=== PATIENT | male | born 1990 | race Caucasian/White ===

== ENCOUNTER 2016-07-31 19:30 | Emergency (ER) | payer MEDICARE, OTHER ==
[~2016-07-31] VITALS: Ht 185.4 cm; Wt 75.0 kg
[~2016-07-31 19:30] MED LIST: BENZ1TAB PO; DEPA500T3 PO; INVA1INJ IM; PALI117P IM; PALI234P IM; RISP1 PO
[2016-07-31 19:34] VITALS: BP 132/77; PULSE 119; RESP 16; TEMP 97.6; O2SAT 98
--- NOTE | 2016-07-31 20:08 | PD ---
HPI Chief Complaint: Psychiatric Symptoms Time Seen by Provider: 20:07 Travel History International Travel<30 days: No Contact w/Intl Traveler<30days: No Traveled to known affect area: No History of Present Illness HPI Patient comes in with mother who is complaining of patient acting slower than normal over the past week. Mother states that he has a delayed reaction has been more delayed over the past week since they moved to a new house and patient 's father came home yesterday after having knee surgery. Mother reports patient has difficulty adjusting to change. Mother reports patient is taking all of his medication as she is only gives it to him. Denies any fevers, nausea , vomiting, abdominal pain, chest pain, shortness breath, loss change in bowel or bladder. Mother reports patient was complaining of a headache today. Patient is slow to answer questions but denies any pain anywhere or other concerns. PFSH Past Medical History Asthma: Yes ( A CHILD) Autoimmune Disease: No Anxiety: Yes Cardiovascular Problems: Yes (HEART MURMER A CHILD) Diminished Hearing: No Genitourinary: No Musculoskeletal: No Neurologic: Yes Psychiatric: Yes Respiratory: No Immunizations Current: Yes Schizophrenia: Yes Tetanus Vaccination: > 5 Years Past Surgical History Surgical History: No Previous Surgery Other Surgery: Yes (CANCER REMOVED ON BACK IN 2002) Social History Alcohol Use: No Tobacco Use: No Substance Use: No Allergies-Medications (Allergen,Severity, Reaction): Coded Allergies: No Known Allergies (Verified , 07/31/16) Uncoded Allergies: CATS,& CAT DANDER (Allergy, Mild, 05/22/06) Reported Meds & Prescriptions Reported Meds & Active Scripts Active Depakote ER (Divalproex Sodium) 500 Mg Shashi 500 Mg PO BID Risperdal (Risperidone) 1 Mg Tab 1 Mg PO BID Invega Sustenna Inj (Paliperidone Palmitate) 234 Mg/1.5 Ml Inj 234 Mg IM Q28D Benztropine (Benztropine Mesylate) 1 Mg Tab 1 Mg PO DAILY Review of Systems Except as stated in HPI: all other systems reviewed are Neg Physical Exam Narrative GENERAL: Well-developed, well nourished, in no acute distress, and non-ill appearing. SKIN: Focused skin assessment warm and dry. HEAD: Atraumatic. Normocephalic. EYES: Pupils equal and round. EOMI. No scleral icterus. No injection or drainage. ENT: No nasal bleeding or discharge. Mucous membranes pink and moist. NECK: Trachea midline. Supple. No nuclear rigidity. CARDIOVASCULAR: Regular rate and rhythm. No murmur appreciated. RESPIRATORY: No accessory muscle use. No respiratory distress. Clear to auscultation. Breath sounds equal bilaterally. GASTROINTESTINAL: Abdomen soft, non-tender, nondistended. Hepatic and splenic margins not palpable. No pulsatile mass. MUSCULOSKELETAL: No obvious deformities. No clubbing. No cyanosis. No edema. Full range of motion. NEUROLOGICAL: Awake and alert. No obvious cranial nerve deficits. Motor grossly within normal limits. Normal speech for patient per mom. Data Data Last Documented VS Vital Signs Date Time Temp Pulse Resp B/P Pulse Ox O2 Delivery O2 Flow Rate FiO2 07/31/16 22:52 96 20 105/66 98 Room Air 07/31/16 19:34 97.6 Orders Complete Blood Count With Diff (07/31/16 19:55) Comprehensive Metabolic Panel (07/31/16 19:55) Psych Screen (07/31/16 19:55) Drug Screen, Random Urine (07/31/16 19:55) Alcohol (Ethanol) (07/31/16 19:55) Salicylates (Aspirin) (07/31/16 19:55) Tylenol (Acetaminophen) (07/31/16 19:55) Valproic Acid (Depakene) (07/31/16 20:05) Ct Brain W/O Iv Contrast(Rout) (07/31/16 ) Divalproex Er (Depakote Er) (07/31/16 21:15) Lorazepam Inj (Ativan Inj) (07/31/16 21:15) Labs Laboratory Tests Test 07/31/16 07/31/16 07/31/16 20:00 20:30 20:50 White Blood Count 6.7 TH/MM3 Red Blood Count 4.50 MIL/MM3 Hemoglobin 13.6 GM/DL Hematocrit 39.4 % Mean Corpuscular Volume 87.6 FL Mean Corpuscular Hemoglobin 30.3 PG Mean Corpuscular Hemoglobin 34.6 % Concent Red Cell Distribution Width 12.6 % Platelet Count 263 TH/MM3 Mean Platelet Volume 8.0 FL Neutrophils (%) (Auto) 70.5 % Lymphocytes (%) (Auto) 21.7 % Monocytes (%) (Auto) 6.7 % Eosinophils (%) (Auto) 0.3 % Basophils (%) (Auto) 0.8 % Neutrophils # (Auto) 4.7 TH/MM3 Lymphocytes # (Auto) 1.5 TH/MM3 Monocytes # (Auto) 0.4 TH/MM3 Eosinophils # (Auto) 0.0 TH/MM3 Basophils # (Auto) 0.1 TH/MM3 CBC Comment DIFF FINAL Differential Comment Sodium Level 138 MEQ/L Potassium Level 3.9 MEQ/L Chloride Level 103 MEQ/L Carbon Dioxide Level 25.2 MEQ/L Anion Gap 10 MEQ/L Blood Urea Nitrogen 14 MG/DL Creatinine 0.73 MG/DL Estimat Glomerular Filtration 129 ML/MIN Rate Random Glucose 103 MG/DL Calcium Level 9.4 MG/DL Total Bilirubin 0.3 MG/DL Aspartate Amino Transf 12 U/L (AST/SGOT) Alanine Aminotransferase 16 U/L (ALT/SGPT) Alkaline Phosphatase 65 U/L Total Protein 7.5 GM/DL Albumin 4.0 GM/DL Acetaminophen Level LESS THAN 2.0 MCG/ML Valproic Acid (Depakene) Level 40 MCG/ML Ethyl Alcohol Level LESS THAN 3 MG/DL Salicylates Level 1.8 MG/DL Urine Opiates Screen NEG Urine Barbiturates Screen NEG Urine Amphetamines Screen NEG Urine Benzodiazepines Screen NEG Urine Cocaine Screen NEG Urine Cannabinoids Screen NEG MDM Medical Decision Making Medical Screen Exam Complete: Yes Emergency Medical Condition: Yes Interpretation(s) CT of the head read by the radiologist as negative. Differential Diagnosis Electrolyte abnormality, adjustment disorder, acute psychosis, mass, or other Narrative Course Patient was seen and examined. Labs were obtained and reviewed. Patient is given a dose of Depakote and Ativan. Based on history provided by mom as the patient is suffering from adjustment disorder secondary to the recent move and father's knee surgery. Patient medically cleared for further treatment and evaluation by psych. Final disposition per psych. [id number] mother's questioning patient be released home now states that he is acting more his normal self after receiving medication here in the emergency department and she was comfortable taking him home and agrees to bring him back for any acute changes. Mother states she will follow up with his psychiatrist at [facility]. I spoke with the psych screener states patient was not at risk for suicidal homicidal ideations, but feels patient may benefit from having his medication adjusted. Discussed with Dr. Schuler who saw and evaluated the patient and is in agreement with allowing the patient to be discharged home in his mother's custody. Diagnosis Primary Impression: Adjustment disorder Qualified Code: F43.20 - Adjustment disorder, unspecified type Patient Instructions: General Instructions Additional Instructions: Follow-up with your primary care physician and psychiatrist this week for reevaluation. Return to the emergency department if symptoms get worse. Disposition: 01 DISCHARGE HOME Condition: Stable Maxx Sevilla Jul 31, 2016 20:08
[2016-07-31 20:13] LABS: AUTOMATED NEUTROPHIL # 4.7 TH/MM3 (1.8-7.7); BASOPHIL # 0.1 TH/MM3 (0-0.2); BASOPHIL % 0.8 % (0.0-2.0); EOSINOPHIL % 0.3 % (0.0-4.0); HEMATOCRIT 39.4 % (39.0-51.0); HEMO FLAGS DIFF FINAL; LYMPH % 21.7 % (9.0-44.0); LYMPHOCYTE # 1.5 TH/MM3 (1.0-4.8); MEAN CELL VOLUME 87.6 FL (80.0-100.0); MEAN CORPUSCULAR HEMOGLOBIN 30.3 PG (27.0-34.0); MEAN CORPUSCULAR HGB CONC 34.6 % (32.0-36.0); MONO % 6.7 % (0.0-8.0); NEUT % 70.5 % (16.0-70.0); PLATELET COUNT 263 TH/MM3 (150-450); RED CELL DISTRIBUTION WIDTH 12.6 % (11.6-17.2); WHITE BLOOD COUNT 6.7 TH/MM3 (4.0-11.0)
[2016-07-31 20:33] LABS: ANION GAP 10 MEQ/L (5-15); AST (GOT) 12 U/L (15-37); BICARBONATE 25.2 MEQ/L (21.0-32.0); BLOOD UREA NITROGEN 14 MG/DL (7-18); CHLORIDE 103 MEQ/L (98-107); GLOMERULAR FILTRATION RATE 129 ML/MIN (>89); POTASSIUM 3.9 MEQ/L (3.5-5.1); SODIUM (NA) 138 MEQ/L (136-145)
[2016-07-31 20:38] LABS: ACETAMINOPHEN LESS THAN 2.0 MCG/ML (10.0-30.0); ALKALINE PHOSPHATASE 65 U/L (45-117); ALT (GPT) 16 U/L (12-78); TOTAL BILIRUBIN ADULT 0.3 MG/DL (0.2-1.0)
--- NOTE | 2016-07-31 21:00 | RADRPT ---
EXAM DATE/TIME: 07/31/2016 20:15 [facility] COMPARISON: No previous studies available for comparison. INDICATIONS : Altered mental status today. RADIATION DOSE: 56.35 CTDIvol (mGy) MEDICAL HISTORY : Cardiovascular disease. SURGICAL HISTORY : None. ENCOUNTER: Initial ACUITY: 1 day PAIN SCALE: 0/10 LOCATION: Bilateral head TECHNIQUE: Multiple contiguous axial images were obtained of the head. Using automated exposure control and adj ustment of the mA and/or kV according to patient size, radiation dose was kept as low as reasonably a chievable to obtain optimal diagnostic quality images. FINDINGS: CEREBRUM: The ventricles are normal for age. No evidence of midline shift, mass lesion, hemorrhage or acute in farction. No extra-axial fluid collections are seen. POSTERIOR FOSSA: The cerebellum and brainstem are intact. The 4th ventricle is midline. The cerebellopontine angle i s unremarkable. EXTRACRANIAL: The visualized portion of the orbits is intact. SKULL: The calvaria is intact. No evidence of skull fracture. CONCLUSION: Negative noncontrast CT brain. Donaldo Bass MD on July 31, 2016 at 20:57 Board Certified Radiologist. This report was verified electronically.
[2016-07-31] MEDS ORDERED: DIVALPROEX SODIUM E.R. 500 MG TAB PO ONE (21:15)
[2016-07-31] MEDS ORDERED: LORazepam 2 MG/ML VIAL IV PUSH ONE (21:15)
[2016-07-31 21:39] LABS: AMPHETAMINE, URINE NEG (NEG); BARBITURATES, URINE NEG (NEG); COCAINE, URINE NEG (NEG)
[2016-07-31 21:53] VITALS: BP 109/71; PULSE 101; RESP 20; O2SAT 96
[2016-07-31 22:52] VITALS: BP 105/66; PULSE 96; RESP 20; O2SAT 98
--- NOTE | 2016-07-31 23:13 | PD ---
Data Data Last Documented VS Vital Signs Date Time Temp Pulse Resp B/P Pulse Ox O2 Delivery O2 Flow Rate FiO2 07/31/16 23:50 76 20 102/55 98 07/31/16 22:52 Room Air 07/31/16 19:34 97.6 Orders Complete Blood Count With Diff (07/31/16 19:55) Comprehensive Metabolic Panel (07/31/16 19:55) Psych Screen (07/31/16 19:55) Drug Screen, Random Urine (07/31/16 19:55) Alcohol (Ethanol) (07/31/16 19:55) Salicylates (Aspirin) (07/31/16 19:55) Tylenol (Acetaminophen) (07/31/16 19:55) Valproic Acid (Depakene) (07/31/16 20:05) Ct Brain W/O Iv Contrast(Rout) (07/31/16 ) Divalproex Er (Depakote Er) (07/31/16 21:15) Lorazepam Inj (Ativan Inj) (07/31/16 21:15) Labs Laboratory Tests Test 07/31/16 07/31/16 07/31/16 20:00 20:30 20:50 White Blood Count 6.7 TH/MM3 Red Blood Count 4.50 MIL/MM3 Hemoglobin 13.6 GM/DL Hematocrit 39.4 % Mean Corpuscular Volume 87.6 FL Mean Corpuscular Hemoglobin 30.3 PG Mean Corpuscular Hemoglobin 34.6 % Concent Red Cell Distribution Width 12.6 % Platelet Count 263 TH/MM3 Mean Platelet Volume 8.0 FL Neutrophils (%) (Auto) 70.5 % Lymphocytes (%) (Auto) 21.7 % Monocytes (%) (Auto) 6.7 % Eosinophils (%) (Auto) 0.3 % Basophils (%) (Auto) 0.8 % Neutrophils # (Auto) 4.7 TH/MM3 Lymphocytes # (Auto) 1.5 TH/MM3 Monocytes # (Auto) 0.4 TH/MM3 Eosinophils # (Auto) 0.0 TH/MM3 Basophils # (Auto) 0.1 TH/MM3 CBC Comment DIFF FINAL Differential Comment Sodium Level 138 MEQ/L Potassium Level 3.9 MEQ/L Chloride Level 103 MEQ/L Carbon Dioxide Level 25.2 MEQ/L Anion Gap 10 MEQ/L Blood Urea Nitrogen 14 MG/DL Creatinine 0.73 MG/DL Estimat Glomerular Filtration 129 ML/MIN Rate Random Glucose 103 MG/DL Calcium Level 9.4 MG/DL Total Bilirubin 0.3 MG/DL Aspartate Amino Transf 12 U/L (AST/SGOT) Alanine Aminotransferase 16 U/L (ALT/SGPT) Alkaline Phosphatase 65 U/L Total Protein 7.5 GM/DL Albumin 4.0 GM/DL Acetaminophen Level LESS THAN 2.0 MCG/ML Valproic Acid (Depakene) Level 40 MCG/ML Ethyl Alcohol Level LESS THAN 3 MG/DL Salicylates Level 1.8 MG/DL Urine Opiates Screen NEG Urine Barbiturates Screen NEG Urine Amphetamines Screen NEG Urine Benzodiazepines Screen NEG Urine Cocaine Screen NEG Urine Cannabinoids Screen NEG MDM Supervised Visit with RAUL: Yes Narrative Course I, Dr. Schuler, have reviewed the advance practice practitioner's documentation and am in agreement, met with the patient face to face, made the diagnosis, and the medical decision making was done by me. *My assessment and Findings: Patient appears to be having a breakthrough of his underlying psychiatric symptoms. According the mother no aggression towards her or himself. Patient denies any suicidal homicidal ideation. Easily redirectable, and cooperative. He is given meds in the emergency department is much calmer now and mom states that she would like take him home and continue his regular medication regimen at home. Patient is certainly not a threat to himself nor others, I do not consider him greatly disabled his lungs mother wants to take care of him. Therefore I am going to on her mother's request to take the patient home. I discussed with her at length returned ED criteria and if he does ever become violent in the future she is entitled to call 911. She verbalized understanding was grateful and they were discharged Diagnosis Primary Impression: Adjustment disorder Qualified Code: F43.20 - Adjustment disorder, unspecified type Patient Instructions: General Instructions Additional Instruction: Follow-up with your primary care physician and psychiatrist this week for reevaluation. Return to the emergency department if symptoms get worse. Disposition: 01 DISCHARGE HOME Condition: Stable Guanako Schuler MD Jul 31, 2016 23:13
[2016-07-31 23:50] VITALS: BP 102/55
== END 2016-08-01 00:13 | disposition home or self-care (01) ==
LOC: NEPC 19:30
DX: F43.20 Adjustment disorder, unspecified (principal)
CPT/HCPCS: 70450; 80053; 80164; 80307; 85025; 96374; 99285; J2060

== ENCOUNTER 2016-08-31 10:34 | Inpatient (IN) | payer OTHER, MEDICARE ==
[~2016-08-31] VITALS: Ht 185.4 cm; Wt 62.0 kg
[~2016-08-31 10:34] MED LIST changes: -INVA1INJ IM; -PALI117P IM
[2016-08-31 10:37] VITALS: BP 124/78; PULSE 102; RESP 24; TEMP 97.3; O2SAT 100
--- NOTE | 2016-08-31 11:33 | PD ---
HPI Chief Complaint: Medical Clearance Time Seen by Provider: 11:33 Travel History International Travel<30 days: No Contact w/Intl Traveler<30days: No Traveled to known affect area: No History of Present Illness HPI 26-year-old male with history of schizophrenia, presents to the emergency department accompanied by his mother for psychiatric evaluation. Patient has been experiencing both auditory and visual hallucinations. He has again responding to them. His mother states that he has become more distant, slow to respond, and his stuttering has worsened. She states he does not do any drugs and he lives at home with her. He has had outbursts. She states his responses to these voices have been "evil." She is concerned that things are escalating and is scared for what might happen. She states that he was take his medication and he gets his shots injections as he is supposed to. She said he has been doing well until recently and she is concerned his medication is no longer working. Patient is a poor historian. He is very delayed and responses to me. When asked if he wanted to hurt himself patient gazes up to the right and becomes tearful. He does not answer my question. PFSH Past Medical History Asthma: Yes ( A CHILD) Autoimmune Disease: No Anxiety: Yes Cardiovascular Problems: Yes (HEART MURMER A CHILD) Diminished Hearing: No Gastrointestinal Disorders: No Genitourinary: No Musculoskeletal: No Neurologic: Yes Psychiatric: Yes Respiratory: No Immunizations Current: Yes Schizophrenia: Yes Past Surgical History Other Surgery: Yes (CANCER REMOVED ON BACK IN 2002) Social History Alcohol Use: No Tobacco Use: No Substance Use: No Allergies-Medications (Allergen,Severity, Reaction): Coded Allergies: No Known Allergies (Verified , 08/31/16) Uncoded Allergies: CATS,& CAT DANDER (Allergy, Mild, 05/22/06) Reported Meds & Prescriptions Reported Meds & Active Scripts Active Depakote ER (Divalproex Sodium) 500 Mg Shashi 500 Mg PO BID Risperdal (Risperidone) 1 Mg Tab 1 Mg PO BID Invega Sustenna Inj (Paliperidone Palmitate) 234 Mg/1.5 Ml Inj 234 Mg IM Q28D Benztropine (Benztropine Mesylate) 1 Mg Tab 1 Mg PO DAILY Review of Systems ROS Limitations: Psychotic, Poor Historian Except as stated in HPI: all other systems reviewed are Neg Physical Exam Exam Limitations: Psychotic Narrative GENERAL: Thin male patient, sitting up in bed, responding to internal stimuli. Started speech and slow to respond SKIN: Focused skin assessment warm/dry. HEAD: Atraumatic. Normocephalic. EYES: Pupils 5 mm, equal and round. No scleral icterus. No injection or drainage. ENT: No nasal bleeding or discharge. Mucous membranes pink and moist. NECK: Trachea midline. No JVD. CARDIOVASCULAR: Tachycardic rate and rhythm. No murmur appreciated. RESPIRATORY: No accessory muscle use. Clear to auscultation. Breath sounds equal bilaterally. GASTROINTESTINAL: Abdomen soft, non-tender, nondistended. Hepatic and splenic margins not palpable. MUSCULOSKELETAL: No obvious deformities. No clubbing. No cyanosis. No edema. NEUROLOGICAL: Awake and alert. No obvious cranial nerve deficits. Motor grossly within normal limits. Stuttered speech Data Data Last Documented VS Vital Signs Date Time Temp Pulse Resp B/P Pulse Ox O2 Delivery O2 Flow Rate FiO2 08/31/16 13:19 95 18 125/74 98 08/31/16 10:37 97.3 Room Air Orders Complete Blood Count With Diff (08/31/16 11:31) Comprehensive Metabolic Panel (08/31/16 11:31) Thyroid Stimulating Hormone (08/31/16 11:31) Urinalysis - C+S If Indicated (08/31/16 11:31) Electrocardiogram (08/31/16 11:31) Iv Access Insert/Monitor (08/31/16 11:31) Psych Screen (08/31/16 11:31) Drug Screen, Random Urine (08/31/16 11:31) Alcohol (Ethanol) (08/31/16 11:31) Olanzapine Odt (Zyprexa Zydis Odt) (08/31/16 11:45) Ct Brain W/O Iv Contrast(Rout) (08/31/16 ) Admit Order (Ed Use Only) (08/31/16 16:56) Labs Laboratory Tests Test 08/31/16 08/31/16 11:55 12:05 White Blood Count 5.3 TH/MM3 Red Blood Count 4.48 MIL/MM3 Hemoglobin 13.5 GM/DL Hematocrit 39.4 % Mean Corpuscular Volume 87.9 FL Mean Corpuscular Hemoglobin 30.1 PG Mean Corpuscular Hemoglobin 34.2 % Concent Red Cell Distribution Width 13.3 % Platelet Count 242 TH/MM3 Mean Platelet Volume 7.8 FL Neutrophils (%) (Auto) 64.8 % Lymphocytes (%) (Auto) 23.6 % Monocytes (%) (Auto) 10.8 % Eosinophils (%) (Auto) 0.3 % Basophils (%) (Auto) 0.5 % Neutrophils # (Auto) 3.4 TH/MM3 Lymphocytes # (Auto) 1.2 TH/MM3 Monocytes # (Auto) 0.6 TH/MM3 Eosinophils # (Auto) 0.0 TH/MM3 Basophils # (Auto) 0.0 TH/MM3 CBC Comment DIFF FINAL Differential Comment Sodium Level 138 MEQ/L Potassium Level 3.8 MEQ/L Chloride Level 104 MEQ/L Carbon Dioxide Level 24.2 MEQ/L Anion Gap 10 MEQ/L Blood Urea Nitrogen 10 MG/DL Creatinine 0.71 MG/DL Estimat Glomerular Filtration 133 ML/MIN Rate Random Glucose 80 MG/DL Calcium Level 9.5 MG/DL Total Bilirubin 0.5 MG/DL Aspartate Amino Transf 13 U/L (AST/SGOT) Alanine Aminotransferase 18 U/L (ALT/SGPT) Alkaline Phosphatase 60 U/L Total Protein 7.5 GM/DL Albumin 3.8 GM/DL Thyroid Stimulating Hormone 1.690 uIU/ML 3rd Gen Ethyl Alcohol Level LESS THAN 3 MG/DL Urine Color YELLOW Urine Turbidity CLEAR Urine pH 7.5 Urine Specific [place] 1.016 Urine Protein NEG mg/dL Urine Glucose (UA) NEG mg/dL Urine Ketones 10 mg/dL Urine Occult Blood NEG Urine Nitrite NEG Urine Bilirubin NEG Urine Urobilinogen LESS THAN 2.0 MG/DL Urine Leukocyte Esterase NEG Urine RBC 4 /hpf Urine WBC 1 /hpf Urine Mucus FEW /lpf Urine Sperm RARE Microscopic Urinalysis Comment CULT NOT INDICATED MDM Medical Decision Making Medical Screen Exam Complete: Yes Emergency Medical Condition: Yes Medical Record Reviewed: Yes Differential Diagnosis Mood disorder versus personality disorder versus adjustment reaction disorder versus acute psychosis Narrative Course 26-year-old male presents to the emergency department for psychiatric evaluation. Patient is a poor historian. He is delayed to respond was significantly stuttered speech. He is responding to internal stimuli. Discussed the patient with lissett DowdP. Lab work is ordered for medical clearance. Patient is given by mouth Zyprexa. Laboratory Tests Test 08/31/16 08/31/16 11:55 12:05 White Blood Count 5.3 TH/MM3 Red Blood Count 4.48 MIL/MM3 Hemoglobin 13.5 GM/DL Hematocrit 39.4 % Mean Corpuscular Volume 87.9 FL Mean Corpuscular Hemoglobin 30.1 PG Mean Corpuscular Hemoglobin 34.2 % Concent Red Cell Distribution Width 13.3 % Platelet Count 242 TH/MM3 Mean Platelet Volume 7.8 FL Neutrophils (%) (Auto) 64.8 % Lymphocytes (%) (Auto) 23.6 % Monocytes (%) (Auto) 10.8 % Eosinophils (%) (Auto) 0.3 % Basophils (%) (Auto) 0.5 % Neutrophils # (Auto) 3.4 TH/MM3 Lymphocytes # (Auto) 1.2 TH/MM3 Monocytes # (Auto) 0.6 TH/MM3 Eosinophils # (Auto) 0.0 TH/MM3 Basophils # (Auto) 0.0 TH/MM3 CBC Comment DIFF FINAL Differential Comment Sodium Level 138 MEQ/L Potassium Level 3.8 MEQ/L Chloride Level 104 MEQ/L Carbon Dioxide Level 24.2 MEQ/L Anion Gap 10 MEQ/L Blood Urea Nitrogen 10 MG/DL Creatinine 0.71 MG/DL Estimat Glomerular Filtration 133 ML/MIN Rate Random Glucose 80 MG/DL Calcium Level 9.5 MG/DL Total Bilirubin 0.5 MG/DL Aspartate Amino Transf 13 U/L (AST/SGOT) Alanine Aminotransferase 18 U/L (ALT/SGPT) Alkaline Phosphatase 60 U/L Total Protein 7.5 GM/DL Albumin 3.8 GM/DL Thyroid Stimulating Hormone 1.690 uIU/ML 3rd Gen Ethyl Alcohol Level LESS THAN 3 MG/DL Urine Color YELLOW Urine Turbidity CLEAR Urine pH 7.5 Urine Specific [place] 1.016 Urine Protein NEG mg/dL Urine Glucose (UA) NEG mg/dL Urine Ketones 10 mg/dL Urine Occult Blood NEG Urine Nitrite NEG Urine Bilirubin NEG Urine Urobilinogen LESS THAN 2.0 MG/DL Urine Leukocyte Esterase NEG Urine RBC 4 /hpf Urine WBC 1 /hpf Urine Mucus FEW /lpf Urine Sperm RARE Microscopic Urinalysis Comment CULT NOT INDICATED Last Impressions Head CT 08/31/16 0000 Signed Impressions: Service Date/Time: Wednesday, August 31, 2016 13:13 - CONCLUSION: Unremarkable study. John Fuller MD Patient will be medically cleared to undergo psychiatric screening for further evaluation and disposition. I have contacted Benita has come to assess the patient. Patient will be admitted inpatient psych. Diagnosis Primary Impression: Psychosis Qualified Code: F20.9 - Schizophrenia, unspecified type Condition: Stable Rashmi Licona Aug 31, 2016 11:33
[2016-08-31] MEDS ORDERED: OLANZapine ODT 10 MG TAB PO ONE (11:45)
[2016-08-31 12:33] LABS: AUTOMATED NEUTROPHIL # 3.4 TH/MM3 (1.8-7.7); BASOPHIL % 0.5 % (0.0-2.0); EOSINOPHIL % 0.3 % (0.0-4.0); HEMATOCRIT 39.4 % (39.0-51.0); HEMO FLAGS DIFF FINAL; LYMPH % 23.6 % (9.0-44.0); LYMPHOCYTE # 1.2 TH/MM3 (1.0-4.8); MEAN CELL VOLUME 87.9 FL (80.0-100.0); MEAN CORPUSCULAR HEMOGLOBIN 30.1 PG (27.0-34.0); MEAN CORPUSCULAR HGB CONC 34.2 % (32.0-36.0); MONO % 10.8 % (0.0-8.0); NEUT % 64.8 % (16.0-70.0); PLATELET COUNT 242 TH/MM3 (150-450); RED BLOOD COUNT 4.48 MIL/MM3 (4.50-5.90); RED CELL DISTRIBUTION WIDTH 13.3 % (11.6-17.2); WHITE BLOOD COUNT 5.3 TH/MM3 (4.0-11.0)
[2016-08-31 12:39] LABS: BLOOD, URINE NEG (NEG); COMMENT (UR) CULT NOT INDICATED; CULTURE IF INDICATED CULT NOT INDICATED; GLUCOSE,URINE NEG (NEG); KETONE, URINE 10 mg/dL (NEG); MUCUS URINE FEW /lpf (OCC); NITRITE,URINE NEG (NEG); PH, URINE 7.5 (5.0-8.5); URINE COLOR YELLOW (YELLW/STRAW)
[2016-08-31 12:57] LABS: ALT (GPT) 18 U/L (12-78); ANION GAP 10 MEQ/L (5-15); AST (GOT) 13 U/L (15-37); BICARBONATE 24.2 MEQ/L (21.0-32.0); BLOOD UREA NITROGEN 10 MG/DL (7-18); CHLORIDE 104 MEQ/L (98-107); GLOMERULAR FILTRATION RATE 133 ML/MIN (>89); POTASSIUM 3.8 MEQ/L (3.5-5.1); SODIUM (NA) 138 MEQ/L (136-145)
[2016-08-31 13:07] LABS: ALKALINE PHOSPHATASE 60 U/L (45-117); TOTAL BILIRUBIN ADULT 0.5 MG/DL (0.2-1.0)
[2016-08-31 13:19] VITALS: BP 125/74; PULSE 95; RESP 18; O2SAT 98
--- NOTE | 2016-08-31 13:45 | RADRPT ---
EXAM DATE/TIME: 08/31/2016 13:13 [facility] COMPARISON: CT BRAIN W/O CONTRAST, July 31, 2016, 20:15. INDICATIONS : Altered mental status, focal seizures RADIATION DOSE: 35.92 CTDIvol (mGy) MEDICAL HISTORY : Cardiovascular disease. Schizophrenia SURGICAL HISTORY : None. ENCOUNTER: Initial ACUITY: 1 day PAIN SCALE: 0/10 LOCATION: cranial TECHNIQUE: Multiple contiguous axial images were obtained of the head. Using automated exposure control and adj ustment of the mA and/or kV according to patient size, radiation dose was kept as low as reasonably a chievable to obtain optimal diagnostic quality images. DICOM format image data is available electro nically for review and comparison. FINDINGS: There is no evidence for intracranial hemorrhage, mass effect, mass lesions, edema, or extra-axial fl uid collections. The visualized bony structures appear intact. The ventricles are normal size for t he patient's age. There are no signs of acute infarction for technique. CONCLUSION: Unremarkable study. John Fuller MD on August 31, 2016 at 13:43 Board Certified Radiologist. This report was verified electronically.
--- NOTE | 2016-08-31 16:11 | EKG ---
Date Performed: 08/31/2016 Time Performed: 12:52:08 PTAGE: 26 years EKG: Sinus rhythm POSSIBLE LEFT ATRIAL ENLARGEMENT POSSIBLE RIGHT VENTRICULAR CONDUCTION DELAY BORDERLINE ECG PREVIOUS TRACING : 08/25/2008 13.35 Compared to prior tracing no significant change DOCTOR: Donovan Rios Interpretating Date/Time 08/31/2016 16:09:52
[2016-08-31 18:06] VITALS: BP 102/64; PULSE 94; RESP 17; TEMP 98.1; O2SAT 99
[2016-08-31] MEDS: risperiDONE 1 MG TAB PO SCH (20:00)
[2016-08-31] MEDS ORDERED: hydrOXYzine HCL 50 MG TAB PO PRN (20:00)
[2016-08-31] MEDS ORDERED: MAGNESIUM HYDROXIDE SUSP 30 ML CUP PO PRN (20:00)
[2016-08-31] MEDS ORDERED: diphenhydrAMINE HCL 50 MG/ML VIAL - HS PRN IM (20:00)
[2016-08-31] MEDS ORDERED: diphenhydrAMINE HCL 50 MG CAP - HS PRN PO (20:00)
[2016-08-31] MEDS ORDERED: ALUMINUM/MAGNESIUM/SIMETH 30 ML CUP PO PRN (20:00)
[2016-08-31] MEDS ORDERED: ACETAMINOPHEN 325 MG TAB PO PRN (20:00)
[2016-08-31] MEDS: DIVALPROEX SODIUM E.R. 500 MG TAB PO SCH (21:00)
[2016-08-31 23:02] LABS: AMPHETAMINE, URINE NEG (NEG); BARBITURATES, URINE NEG (NEG); COCAINE, URINE NEG (NEG)
[2016-09-01 06:01] VITALS: BP 95/57; PULSE 107; RESP 16; TEMP 98; O2SAT 98
[2016-09-01] MEDS ORDERED: NICOTINE 21 MG/24 HR PATCH T-DERMAL SCH (09:00)
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
[2016-09-01] MEDS: BENZTROPINE MESYLATE 1 MG TAB PO SCH (10:17)
[2016-09-01] MEDS: DIVALPROEX SODIUM E.R. 500 MG TAB PO SCH ×2 (10:17→21:43)
[2016-09-01] MEDS: risperiDONE 1 MG TAB PO SCH ×2 (10:20→20:15)
[2016-09-01] MEDS ORDERED: LORazepam 1 MG TAB PO PRN (12:45)
[2016-09-01] MEDS ORDERED: BENZTROPINE MESYLATE 1 MG TAB PO PRN (12:45)
[2016-09-01] MEDS ORDERED: LORazepam 2 MG/ML VIAL IM PRN (12:45)
[2016-09-01] MEDS ORDERED: BENZTROPINE MESYLATE 2 MG/2 ML VIAL IM PRN (12:45)
[2016-09-01 14:18] LABS: ANION GAP 6 MEQ/L (5-15); BICARBONATE 29.1 MEQ/L (21.0-32.0); BLOOD UREA NITROGEN 18 MG/DL (7-18); CHLORIDE 104 MEQ/L (98-107); GLOMERULAR FILTRATION RATE 87 ML/MIN (>89); POTASSIUM 4.5 MEQ/L (3.5-5.1); SODIUM (NA) 139 MEQ/L (136-145)
[2016-09-01 14:23] LABS: HDL CHOLESTEROL 58.4 MG/DL (40.0-60.0); LDL CHOLESTEROL 89 MG/DL (0-99)
--- NOTE | 2016-09-01 16:30 | PD.CONS ---
HPI Service [facility] Hospitalists Consult Requested By Psychiatry team Reason for Consult Medical management vertigo, dizziness Primary Care Physician Jamal Feng Diagnoses: History of Present Illness Written by Pravin Canales, acting as scribe for Dr. Durbin on 09/01/16 at 15: 44. Patient is a 26-year-old male with primary medical history of schizophrenia, auditory and visual hallucinations, asthma who came in due to hospital for psychiatric evaluation brought in by mother. As per records, patient has been experiencing both auditory and visual hallucinations and responding to them. His mother states that he has become more distant, slow to respond, and his stuttering has worsened. He is now admitted to inpatient psychiatry unit for further evaluation. Consulted for medical management for vertigo. Patient seen and examined. Reports he has "spinning sensation" for close to a year now. States it happens about 2-3x per month, associated with hearing voices when this happen. Reports does not know any triggering events, it just happens. Reports last time it happened was yesterday. Denies any ear pain, eye pain. Denies visual or auditory hallucination or sz. Denies pain and discomfort. Denies SOB/ dyspnea. Denies chest pain, palpitations, headaches, dizziness. Denies fevers, chills, n/v/d. Denies dysuria. Review of Systems Except as stated in HPI: all other systems reviewed are Neg Past Family Social History Allergies: Coded Allergies: No Known Allergies (Verified , 08/31/16) Uncoded Allergies: CATS,& CAT DANDER (Allergy, Mild, 05/22/06) Past Medical History Schizophrenia with auditory and visual hallucinations Asthma Past Surgical History Cancer removal in the back in 2002 Reported Medications Reported Meds & Active Scripts Active Depakote ER (Divalproex Sodium) 500 Mg Shashi 500 Mg PO BID Risperdal (Risperidone) 1 Mg Tab 1 Mg PO BID 08, Invega Sustenna Inj (Paliperidone Palmitate) 234 Mg/1.5 Ml Inj 234 Mg IM Q28D Benztropine (Benztropine Mesylate) 1 Mg Tab 1 Mg PO DAILY Active Ordered Medications Current Medications Medications (Trade) Dose Ordered Sig/Balta Route Start Time Stop Time Status Last Admin (Atarax) 50 mg Q6H PRN PO 08/31/16 20:00 (Benadryl) 50 mg HS PRN PO 08/31/16 20:00 (Tylenol) 650 mg Q4H PRN PO 08/31/16 20:00 (Milk Of Magnesia Liq) 30 ml DAILY PRN PO 08/31/16 20:00 (Mag-Al Plus Susp Liq) 30 ml Q6H PRN PO 08/31/16 20:00 (Cogentin) 1 mg DAILY PO 09/01/16 09:00 09/01/16 10:17 (risperDAL) 2 mg DAILY@08,20 PO 08/31/16 20:00 09/01/16 10:20 (Depakote Er) 500 mg BID PO 08/31/16 21:00 09/01/16 10:17 (ZyPREXA ZYDIS ODT) 5 mg HS PO 09/01/16 21:00 (Cogentin) 1 mg Q12HR PRN PO 09/01/16 12:45 (Cogentin Inj) 1 mg Q12HR PRN IM 09/01/16 12:45 (Ativan) 1 mg Q6H PRN PO 09/01/16 12:45 (Ativan Inj) 1 mg Q6H PRN IM 09/01/16 12:45 Family History Denies any family history of seizures Social History Denies alcohol use Denies tobacco use Denies illicit drug use Physical Exam Vital Signs Vital Signs Date Time Temp Pulse Resp B/P Pulse Ox O2 Delivery O2 Flow Rate FiO2 09/01/16 06:01 98.0 107 16 95/57 98 08/31/16 18:06 98.1 94 17 102/64 99 Physical Exam GENERAL: This is a well-nourished, well-developed patient, in no apparent distress. SKIN: No rashes, ecchymoses or lesions. Warm and dry. HEAD: Atraumatic. Normocephalic. No temporal or scalp tenderness. EYES: Pupils equal round and reactive. Extraocular motions intact. No scleral icterus. No injection or drainage. No nystagmus ENT: Nose without bleeding. Throat without erythema. Uvula midline. Airway patent. NECK: Trachea midline. No JVD or lymphadenopathy. Supple, nontender, no meningeal signs. CARDIOVASCULAR: Regular rate and rhythm without murmurs, gallops, or rubs. RESPIRATORY: Clear to auscultation. Breath sounds equal bilaterally. No wheezes , rales, or rhonchi. GASTROINTESTINAL: Abdomen soft, non-tender, nondistended. BS active x4. MUSCULOSKELETAL: Extremities without clubbing, cyanosis, or edema. NEUROLOGICAL: Awake and alert. Motor and sensory grossly within normal limits. He stutters Laboratory Laboratory Tests Test 09/01/16 11:47 Sodium Level 139 Potassium Level 4.5 Chloride Level 104 Carbon Dioxide Level 29.1 Anion Gap 6 Blood Urea Nitrogen 18 Creatinine 1.03 Estimat Glomerular Filtration 87 Rate Random Glucose 89 Calcium Level 9.6 Triglycerides Level 48 Cholesterol Level 157 LDL Cholesterol 89 HDL Cholesterol 58.4 Cholesterol/HDL Ratio 2.68 Valproic Acid (Depakene) Level 90 Result Diagram: 08/31/16 1155 09/01/16 1147 Imaging Last Impressions Head CT 08/31/16 0000 Signed Impressions: Service Date/Time: Monday, August 31, 2016 13:13 - CONCLUSION: Unremarkable study. John Fuller MD Assessment and Plan Problem List: (1) Psychosis ICD Code: F29 Status: Acute Assessment and Plan Patient is a 26-year-old male with primary medical history of schizophrenia, auditory and visual hallucinations, asthma who came in due to hospital for psychiatric evaluation brought in by mother. As per records, patient has been experiencing both auditory and visual hallucinations and responding to them. His mother states that he has become more distant, slow to respond, and his stuttering has worsened. He is now admitted to inpatient psychiatry unit for further evaluation. Consulted for medical management for vertigo. Schizophrenia - Managed by psychiatry team Vertigo with nystagmus per history - Patient complains of spinning sensation occurring 2-3 times per month for almost a year now, associated with hearing voices when this happens. - CT of the head unremarkable study - Labs reviewed, unremarkable. UA negative - With visual hallucination's, EEG ordered, follow-up results. Seizure precautions - Monitor for now as the patient denies any symptomatology on exam. DVT prop ambulatory Code Status Full code Discussed Condition With Patient, nursing This note was transcribed by min Canales I, Dr. Guido Durbin personally performed the history, physical exam, and medical decision making; and confirmed the accuracy of the information in the transcribed note. Authenticated by Dr. Guido Durbin on 09/01/16 at 15:44. Problem Qualifiers (1) Psychosis: Qualified Code: F20.0 - Paranoid schizophrenia Pravin Grullon Sep 01, 2016 16:30 Guido Durbin MD Sep 01, 2016 16:45
[2016-09-01 17:48] LABS: HEMOGLOBIN A1a 1.2 %; HEMOGLOBIN A1b 1.7 %; HEMOGLOBIN Ao 85.3 %; HEMOGLOBIN P3 3.7 %
--- NOTE | 2016-09-01 18:56 | MG ---
cc: ESTUARDO RODRIGUEZ Lab No: [id number] Date: 09/01/16 Age: 26 Sex: M Race: Normal CT, hallucinations. A 26-year-old. Depakote, Risperdal, Cogentin Nicotine A 9 Hz 60 microvolt symmetric posterior and diffuse rhythm is seen. At times diffuse 5 Hz slowing is noted. Photic stimulation was performed at the beginning of the recording without significant posterior driving. Hyperventilation was performed with fair effort without significant change in the background. The patient appears to fall asleep and reach some stage II sleep towards the middle of the recording. No epileptiform or seizure activity is noted. There were no hemisphere asymmetries. IMPRESSION Normal awake and sleep EEG. No evidence for focal or diffuse abnormality. MD DOUG Sutherland/ /6:37 PM /6:53 PM
[2016-09-01 20:24] VITALS: BP 109/56; PULSE 92; RESP 17; TEMP 97.8; O2SAT 99
[2016-09-01] MEDS ORDERED: REMOVE OLD NICOTINE PATCH T-DERMAL SCH (21:00)
[2016-09-01] MEDS: OLANZapine ODT 5 MG TAB PO SCH (21:43)
[2016-09-02 06:08] VITALS: BP 90/57; PULSE 63; RESP 18; TEMP 98.5; O2SAT 98
[2016-09-02 06:57] VITALS: BP 100/74; PULSE 56
[2016-09-02 06:58] VITALS: BP 94/70; PULSE 76
[2016-09-02 06:59] VITALS: BP 90/60; PULSE 124
--- NOTE | 2016-09-02 07:53 | HHI.PR ---
Subjective Remarks Follow-up vertigo. No complaints. He is even smiling per discussed with RN Objective Vitals Vital Signs Date Time Temp Pulse Resp B/P Pulse Ox O2 Delivery O2 Flow Rate FiO2 09/02/16 06:59 124 90/60 09/02/16 06:58 76 94/70 09/02/16 06:57 56 100/74 09/02/16 06:08 98.5 63 18 90/57 98 09/01/16 20:24 97.8 92 17 109/56 99 Result Diagram: 08/31/16 1155 09/01/16 1147 Imaging Last Impressions Head CT 08/31/16 0000 Signed Impressions: Service Date/Time: Wednesday, August 31, 2016 13:13 - CONCLUSION: Unremarkable study. John Fuller MD Objective Remarks GENERAL: This is a well-nourished, well-developed patient, in no apparent distress. SKIN: No rashes, ecchymoses or lesions. Warm and dry. HEAD: Atraumatic. Normocephalic. No temporal or scalp tenderness. EYES: Pupils equal round and reactive. Extraocular motions intact. No scleral icterus. No injection or drainage. No nystagmus ENT: Nose without bleeding. Throat without erythema. Uvula midline. Airway patent. NECK: Trachea midline. No JVD or lymphadenopathy. Supple, nontender, no meningeal signs. CARDIOVASCULAR: Regular rate and rhythm without murmurs, gallops, or rubs. RESPIRATORY: Clear to auscultation. Breath sounds equal bilaterally. No wheezes , rales, or rhonchi. GASTROINTESTINAL: Abdomen soft, non-tender, nondistended. BS active x4. MUSCULOSKELETAL: Extremities without clubbing, cyanosis, or edema. NEUROLOGICAL: Awake and alert. Motor and sensory grossly within normal limits. He stutters A/P Problem List: (1) Psychosis ICD Code: F29 Status: Acute Assessment and Plan Patient is a 26-year-old male with primary medical history of schizophrenia, auditory and visual hallucinations, asthma who came in due to hospital for psychiatric evaluation brought in by mother. As per records, patient has been experiencing both auditory and visual hallucinations and responding to them. His mother states that he has become more distant, slow to respond, and his stuttering has worsened. He is now admitted to inpatient psychiatry unit for further evaluation. Consulted for medical management for vertigo. Schizophrenia - Managed by psychiatry team Vertigo with nystagmus per history this is chronic for a year now and stable. 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 - CT of the head unremarkable study - Labs reviewed, unremarkable. UA negative - Negative EEG - Monitor for now as the patient denies any symptomatology on exam. ST likely from agitation. EKG without arrhythmia, TSH ok. We'll monitor DVT prop ambulatory Discharge Planning If he remains stable we'll sign off Problem Qualifiers (1) Psychosis: Qualified Code: F20.0 - Paranoid schizophrenia Guido Durbin MD Sep 02, 2016 07:53
[2016-09-02] MEDS: BENZTROPINE MESYLATE 1 MG TAB PO SCH (08:36)
[2016-09-02] MEDS: DIVALPROEX SODIUM E.R. 500 MG TAB PO SCH ×2 (08:36→21:25)
[2016-09-02] MEDS: risperiDONE 1 MG TAB PO SCH ×2 (08:36→20:13)
[2016-09-02 08:37] VITALS: BP 124/68; PULSE 98
--- NOTE | 2016-09-02 10:19 | HHI.PYPN ---
Subjective Remarks Patient seen and examined with counselor. Chart reviewed. Case discussed with nursing staff. No behavioral issues noted. Nursing staff has obtain medication list, and patient is apparently due for his Invega Sustenna at the end of August as was initially documented. Other medications are consistent with medication list. On my examination today, the patient continues to exhibit some palilalia, although this is perhaps a little less. He denies any audiovisual hallucinations today. No command auditory hallucinations. No paranoia. Seems a little brighter with respect to his affect. Patient continues to tolerate the Zyprexa well in addition to his other psychotropics. He would like to see how he does with this dose with the weekend. No physical complaints. Review of Systems ROS Limitations: Poor Historian Except as stated in HPI: all other systems reviewed are Neg Objective Alert: Yes [place]: Person, Place, Date Mood: Calm Affect: Flat Memory Intact: Comment (at least fair on clinical exam) Hallucinations: Other (denies AVH) Delusions: No Delusion Type: Other (no delusions) Suicidal: Ideation (no SI) Homicidal: Ideation (no HI) Insight/Judgment Fair Remarks No motor abnormalities noted. Thought process generally linear. Speech with palilalia as above. Grooming and hygiene fair. Labs Test 09/01/16 11:47 Sodium Level 139 MEQ/L Potassium Level 4.5 MEQ/L Chloride Level 104 MEQ/L Carbon Dioxide Level 29.1 MEQ/L Anion Gap 6 MEQ/L Blood Urea Nitrogen 18 MG/DL Creatinine 1.03 MG/DL Estimat Glomerular Filtration 87 ML/MIN Rate Random Glucose 89 MG/DL Hemoglobin A1c 5.5 % Calcium Level 9.6 MG/DL Triglycerides Level 48 MG/DL Cholesterol Level 157 MG/DL LDL Cholesterol 89 MG/DL HDL Cholesterol 58.4 MG/DL Cholesterol/HDL Ratio 2.68 RATIO Valproic Acid (Depakene) Level 90 MCG/ML Labs reviewed. Depakote level within the therapeutic range. EEG was read as normal. Vitals/IOs Vital Signs Date Time Temp Pulse Resp B/P Pulse Ox O2 Delivery O2 Flow Rate FiO2 09/02/16 08:37 98 124/68 09/02/16 06:08 98.5 18 98 08/31/16 10:37 Room Air Assessment & Plan Problem List: (1) Psychosis ICD Code: F29 Assessment & Plan Continue Zyprexa as ordered through the weekend per patient preference. I have discussed with the patient that if he remains symptomatic after the weekend, we should consider titrating this agent so long as he continues to tolerate it well. Continue other psychotropics as ordered. Hospitalist input noted and appreciated. Continue to monitor on the inpatient unit. Continue other medications and care as ordered. Justification for Cont. Inpt. Risk for decompensation Discharge Planning Pending stabilization Request HC Surrog/Guard Advoc?: No Problem Qualifiers (1) Psychosis: Qualified Code: F20.0 - Paranoid schizophrenia Ariel Robbins MD Sep 02, 2016 10:19
[2016-09-02 17:32] VITALS: BP 104/65; PULSE 90; RESP 18; TEMP 98.6; O2SAT 98
[2016-09-02] MEDS: OLANZapine ODT 5 MG TAB PO SCH (21:25)
[2016-09-03 05:57] VITALS: BP 118/59; PULSE 80; RESP 18; TEMP 97.2; O2SAT 97
--- NOTE | 2016-09-03 08:59 | HHI.PR ---
Subjective Remarks Follow-up vertigo and tachycardia. Patient has no complaints. Vital signs noted without tachycardia. Discussed with RN Objective Vitals Vital Signs Date Time Temp Pulse Resp B/P Pulse Ox O2 Delivery O2 Flow Rate FiO2 09/03/16 05:57 97.2 80 18 118/59 97 09/02/16 17:32 98.6 90 18 104/65 98 Result Diagram: 08/31/16 1155 09/01/16 1147 Imaging Last Impressions Head CT 08/31/16 0000 Signed Impressions: Service Date/Time: Monday, August 31, 2016 13:13 - CONCLUSION: Unremarkable study. John Fuller MD Objective Remarks GENERAL: This is a well-nourished, well-developed patient, in no apparent distress. SKIN: No rashes, ecchymoses or lesions. Warm and dry. HEAD: Atraumatic. Normocephalic. No temporal or scalp tenderness. EYES: Pupils equal round and reactive. Extraocular motions intact. No scleral icterus. No injection or drainage. No nystagmus ENT: Nose without bleeding. Throat without erythema. Uvula midline. Airway patent. NECK: Trachea midline. No JVD or lymphadenopathy. Supple CARDIOVASCULAR: Regular rate and rhythm without murmurs, gallops, or rubs. RESPIRATORY: Clear to auscultation. Breath sounds equal bilaterally. No wheezes , rales, or rhonchi. GASTROINTESTINAL: Abdomen soft, non-tender, nondistended. BS active x4. MUSCULOSKELETAL: Extremities without clubbing, cyanosis, or edema. NEUROLOGICAL: Awake and alert. Motor and sensory grossly within normal limits. He stutters A/P Problem List: (1) Psychosis ICD Code: F29 Status: Acute Assessment and Plan Patient is a 26-year-old male with primary medical history of schizophrenia, auditory and visual hallucinations, asthma who came in due to hospital for psychiatric evaluation brought in by mother. As per records, patient has been experiencing both auditory and visual hallucinations and responding to them. His mother states that he has become more distant, slow to respond, and his stuttering has worsened. He is now admitted to inpatient psychiatry unit for further evaluation. Consulted for medical management for vertigo. Schizophrenia - Managed by psychiatry team Vertigo with nystagmus per history this is chronic for a year now and stable. 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 - CT of the head unremarkable study - Labs reviewed, unremarkable. UA negative - Negative EEG - Monitor for now as the patient denies any symptomatology on exam. ST likely from agitation. EKG without arrhythmia, TSH ok. Improved. We'll monitor DVT prop ambulatory Discharge Planning Medically stable, we'll sign off Problem Qualifiers (1) Psychosis: Qualified Code: F20.0 - Paranoid schizophrenia Guido Durbin MD Sep 03, 2016 08:59
[2016-09-03] MEDS: DIVALPROEX SODIUM E.R. 500 MG TAB PO SCH ×2 (09:11→21:25)
[2016-09-03] MEDS: BENZTROPINE MESYLATE 1 MG TAB PO SCH (09:11)
[2016-09-03] MEDS: risperiDONE 1 MG TAB PO SCH ×2 (09:13→21:25)
--- NOTE | 2016-09-03 13:22 | HHI.PYPN ---
Subjective Remarks Patient was seen and case discussed with nursing. Patient is very seclusive. He appears anxious and internally preoccupied. There were extended conversation patient admits to fighting the bad thoughts. When asked what he mean bad thoughts are thoughts of killing himself. However per nursing he denied suicidal ideation this morning. Patient denies a plan or any intent. Continues to say that hallucinations are gone. His compliant with his medication Objective Alert: Yes [place]: Person, Place, Date Mood: Calm Affect: Flat Memory Intact: Comment (at least fair on clinical exam) Hallucinations: Other (denies AVH) Delusions: No Delusion Type: Other (no delusions) Suicidal: Ideation (+ideation but no plan or intent) Homicidal: Ideation (no HI) Insight/Judgment Poor Vitals/IOs Vital Signs Date Time Temp Pulse Resp B/P Pulse Ox O2 Delivery O2 Flow Rate FiO2 09/03/16 05:57 97.2 80 18 118/59 97 08/31/16 10:37 Room Air Assessment & Plan Problem List: (1) Psychosis ICD Code: F29 Assessment & Plan Continue current treatment plan Justification for Cont. Inpt. Patient will decompensate in a less restrictive setting Request HC Surrog/Guard Advoc?: No Problem Qualifiers (1) Psychosis: Qualified Code: F20.0 - Paranoid schizophrenia Nixon Nolan DO Sep 03, 2016 13:22
[2016-09-03 17:51] VITALS: BP 112/61; PULSE 102; RESP 18; TEMP 98.3; O2SAT 97
[2016-09-03] MEDS: OLANZapine ODT 5 MG TAB PO SCH (21:25)
[2016-09-04 05:38] VITALS: BP 102/55; PULSE 71; RESP 18; TEMP 97.8; O2SAT 98
[2016-09-04] MEDS: BENZTROPINE MESYLATE 1 MG TAB PO SCH (09:00)
[2016-09-04] MEDS: DIVALPROEX SODIUM E.R. 500 MG TAB PO SCH ×2 (09:15→20:55)
[2016-09-04] MEDS: risperiDONE 1 MG TAB PO SCH ×2 (09:15→20:54)
--- NOTE | 2016-09-04 16:20 | HHI.PYPN ---
Subjective Remarks Patient was seen and case discussed with nursing. Patient continues to improve. He says that he was hoping for the hallucinations to go away and he says that they have. Also the room is not spending as it was. He was not complaining of the room spinning yesterday. The bad thoughts he mentioned yesterday are gone and today he has no suicidal ideation intent or plan. He remained seclusive and I asked him to consider leaving the room and interacting with others. Compliant with his medications and tolerating it well Objective Alert: Yes [place]: Person, Place, Date Mood: Calm Affect: Blunted Memory Intact: Comment (at least fair on clinical exam) Hallucinations: Other (denies AVH) Delusions: No Delusion Type: Other (no delusions) Suicidal: Ideation (+ideation but no plan or intent) Homicidal: Ideation (no HI) Insight/Judgment Improving Vitals/IOs Vital Signs Date Time Temp Pulse Resp B/P Pulse Ox O2 Delivery O2 Flow Rate FiO2 09/04/16 05:38 97.8 71 18 102/55 98 08/31/16 10:37 Room Air Assessment & Plan Problem List: (1) Psychosis ICD Code: F29 Assessment & Plan Continue current treatment plan Justification for Cont. Inpt. Patient will decompensate in a less restrictive setting Request HC Surrog/Guard Advoc?: No Problem Qualifiers (1) Psychosis: Qualified Code: F20.0 - Paranoid schizophrenia Nixon Nolan DO Sep 04, 2016 16:19
[2016-09-04 17:32] VITALS: BP 111/63; PULSE 77; RESP 18; TEMP 98.5; O2SAT 99
[2016-09-04] MEDS: OLANZapine ODT 5 MG TAB PO SCH (20:54)
[2016-09-05 04:43] VITALS: BP 103/66; PULSE 75; RESP 18; TEMP 98.1; O2SAT 96
[2016-09-05 08:22] VITALS: BP 122/60; PULSE 94
[2016-09-05] MEDS: risperiDONE 1 MG TAB PO SCH ×2 (08:54→20:00)
[2016-09-05] MEDS: BENZTROPINE MESYLATE 1 MG TAB PO SCH (08:54)
[2016-09-05] MEDS: DIVALPROEX SODIUM E.R. 500 MG TAB PO SCH ×2 (08:54→21:00)
--- NOTE | 2016-09-05 16:07 | HHI.PYPN ---
Subjective Remarks Patient seen and examined with counselor and nurse. Chart reviewed. Case discussed with nursing staff. No behavioral issues noted. On my examination today, patient exhibits ongoing palilalia, although this is reduced. Mood is good. Denies AVH. Denies SI or HI. Nurse has reached out to patient's mother who is open to possible discharge tomorrow. Denies side effects from medications. No physical complaints. Review of Systems Except as stated in HPI: all other systems reviewed are Neg Objective Alert: Yes [place]: Person, Place, Date Mood: Happy Affect: Euthymic Memory Intact: Comment (fair) Hallucinations: Other (again denies AVH) Delusions: No Delusion Type: Other (no delusions) Suicidal: Ideation (denies SI) Homicidal: Ideation (denies HI) Insight/Judgment Poor Remarks Thought process linear. Labs Labs reviewed. Vitals/IOs Vital Signs Date Time Temp Pulse Resp B/P Pulse Ox O2 Delivery O2 Flow Rate FiO2 09/05/16 08:22 94 122/60 09/05/16 04:43 98.1 18 96 Assessment & Plan Problem List: (1) Psychosis ICD Code: F29 Assessment & Plan Titrate Zyprexa to 7.5 mg at bedtime. Continue other psychotropics as ordered. Continue other medications and care as ordered. Justification for Cont. Inpt. Medication changes Discharge Planning Possible discharge tomorrow Request HC Surrog/Guard Advoc?: No Problem Qualifiers (1) Psychosis: Qualified Code: F20.0 - Paranoid schizophrenia Ariel Robbins MD Sep 05, 2016 16:06
[2016-09-05] MEDS ORDERED: PILL SPLITTER OTHER PRN (16:15)
[2016-09-05 18:10] VITALS: BP 104/57; PULSE 108; RESP 18; TEMP 98; O2SAT 96
[2016-09-06 06:08] VITALS: BP 95/50; PULSE 74; RESP 16; TEMP 98.1; O2SAT 97
[2016-09-06 08:09] VITALS: BP 123/65; PULSE 77
[2016-09-06] MEDS: DIVALPROEX SODIUM E.R. 500 MG TAB PO SCH (08:15)
[2016-09-06] MEDS: BENZTROPINE MESYLATE 1 MG TAB PO SCH (08:15)
[2016-09-06] MEDS: risperiDONE 1 MG TAB PO SCH (08:15)
[2016-09-06] MEDS ORDERED: OLAN15TA PO (13:06)
[2016-09-06] MEDS ORDERED: RISP1 PO (13:06)
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
[2016-09-15] MEDS ORDERED: PALIPERIDONE PALMITATE 234 MG/1.5 ML SYRINGE IM SCH (09:00)
== END 2016-09-06 14:55 | disposition home or self-care (01) | DRG 885 ==
LOC: NEPC 10:34 → NEDA 16:58 → H270 17:57
PROVIDERS: ADMIT Psychiatry & Neurology Psychiatry; ATTEND Psychiatry & Neurology Psychiatry
DX: F29 Unspecified psychosis not due to a substance or known physiological condition (principal); H55.00 Unspecified nystagmus; R48.8 Other symbolic dysfunctions; R42 Dizziness and giddiness
CPT/HCPCS: 70450; 80048; 80053; 80061; 80164; 80307; 81001; 83036; 84443; 85025; 93005; 95819

== ENCOUNTER 2017-03-13 21:37 | Inpatient (IN) | payer OTHER, MEDICAID, MEDICARE ==
[~2017-03-13] VITALS: Ht 182.9 cm; Wt 68.3 kg
[~2017-03-13 21:37] MED LIST changes: +OLAN15TA PO
[2017-03-13 22:21] VITALS: BP 124/73; PULSE 101; RESP 18; TEMP 98.2; O2SAT 97
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
[2017-03-13 22:56] LABS: AUTOMATED NEUTROPHIL # 5.8 TH/MM3 (1.8-7.7); BASOPHIL % 0.4 % (0.0-2.0); EOSINOPHIL % 0.3 % (0.0-4.0); HEMATOCRIT 38.6 % (39.0-51.0); HEMOGLOBIN 13.2 GM/DL (13.0-17.0); LYMPH % 23.6 % (9.0-44.0); LYMPHOCYTE # 2.1 TH/MM3 (1.0-4.8); MEAN CELL VOLUME 88.3 FL (80.0-100.0); MEAN CORPUSCULAR HEMOGLOBIN 30.1 PG (27.0-34.0); MEAN CORPUSCULAR HGB CONC 34.1 % (32.0-36.0); MEAN PLATELET VOLUME 7.2 FL (7.0-11.0); MONOCYTE # 0.9 TH/MM3 (0-0.9); NEUT % 65.7 % (16.0-70.0); PLATELET COUNT 319 TH/MM3 (150-450); RED BLOOD COUNT 4.37 MIL/MM3 (4.50-5.90); WHITE BLOOD COUNT 8.8 TH/MM3 (4.0-11.0)
[2017-03-13 23:08] LABS: BICARBONATE 30.5 MEQ/L (21.0-32.0); BLOOD UREA NITROGEN 10 MG/DL (7-18); CALCIUM 9.5 MG/DL (8.5-10.1); CHLORIDE 103 MEQ/L (98-107); CREATININE 0.95 MG/DL (0.60-1.30); GLOMERULAR FILTRATION RATE 95 ML/MIN (>89); GLUCOSE,RANDOM 95 MG/DL (74-106); SODIUM (NA) 139 MEQ/L (136-145)
[2017-03-13 23:19] LABS: ACETAMINOPHEN LESS THAN 2.0 MCG/ML (10.0-30.0)
[2017-03-14 02:54] VITALS: BP 125/55; TEMP 98.7; O2SAT 99
[2017-03-14 10:10] VITALS: BP 104/66; PULSE 93; RESP 18
[2017-03-14 14:29] VITALS: BP 114/66; PULSE 111; RESP 18
[2017-03-14] MEDS ORDERED: LORazepam 2 MG/ML VIAL IM PRN (15:45)
[2017-03-14] MEDS ORDERED: diphenhydrAMINE HCL 50 MG CAP PO PRN (15:45)
[2017-03-14] MEDS ORDERED: LORazepam 1 MG TAB PO PRN (15:45)
[2017-03-14] MEDS ORDERED: diphenhydrAMINE HCL 50 MG/ML VIAL IM PRN (15:45)
[2017-03-14] MEDS ORDERED: ACETAMINOPHEN 325 MG TAB PO PRN (15:45)
[2017-03-14] MEDS ORDERED: ALUMINUM/MAGNESIUM/SIMETH 30 ML CUP PO PRN (15:45)
[2017-03-14] MEDS ORDERED: MAGNESIUM HYDROXIDE SUSP 30 ML CUP PO PRN (15:45)
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
[2017-03-14 16:45] VITALS: BP 107/74; PULSE 113; RESP 18; TEMP 98.1; O2SAT 99
[2017-03-14] MEDS ORDERED: PILL SPLITTER OTHER PRN (21:00)
[2017-03-14] MEDS: DIVALPROEX SODIUM E.R. 500 MG TAB PO SCH (21:18)
[2017-03-15 06:06] VITALS: BP 105/64; PULSE 79; RESP 18; TEMP 97.1; O2SAT 99
[2017-03-15] MEDS: DIVALPROEX SODIUM E.R. 500 MG TAB PO SCH ×2 (09:00→20:42)
--- NOTE | 2017-03-15 09:56 | HHI.PYPN ---
Subjective Chief Complaint: Psychosis Remarks Patient seen and examined with nurse. Chart reviewed. Case discussed with nursing staff. On my examination today, the patient continues to exhibit palilalia. He notes "I've been hearing voices," although he reports these stopped 2 days ago. He denies AVH presently. Denies SI or HI. I can elicit no paranoia, no ideas of reference or other delusions. Patient does report feeling quite tense and would like a medication adjustment to address this. He reports good adherence with psychotropic medications. Mild resting tremor but no other side effects from medications. Complains of chronic vertiginous sensation, and I note this was worked up during his previous admission. No new physical complaints. Nurse has confirmed med list with pharmacy. This list includes: Depakote, Zyprexa, Risperdal, Invega Sustenna 234mg IM (last on 02/16), Cogentin. Review of Systems ROS Limitations: Psychotic Except as stated in HPI: all other systems reviewed are Neg Mental Status Examination Appearance: Disheveled Consciousness: Alert Orientation: Person, Place (at least) Motor Activity: Normal gait, Other (Mild resting tremor. No other motor abnormalities noted.) Speech: Unremarkable, Other Language: Other (Palilalia) Fund of Knowledge: Adequate Attention and Concentration: Adequate Memory: Unremarkable Mood: Anxious Affect: Anxious Thought Process & Associations: Circumstantial Thought Content: Appropriate Hallucination Type: None (Denies AVH presently) Delusion Type: None Suicidal Ideation: No Suicidal Plan: No Suicidal Intention: No Homicidal Ideation: No Homicidal Plan: No Homicidal Intention: No Insight: Fair Judgment: Adequate (fair) Results Labs Item Value Date Time White Blood Count 5.2 TH/MM3 03/15/17 0955 Hemoglobin 13.6 GM/DL 03/15/17 0955 Platelet Count 321 TH/MM3 03/15/17 0955 Sodium Level 138 MEQ/L 03/15/17 0955 Potassium Level 4.2 MEQ/L 03/15/17 0955 Chloride Level 103 MEQ/L 03/15/17 0955 Carbon Dioxide Level 28.7 MEQ/L 03/15/17 0955 Blood Urea Nitrogen 9 MG/DL 03/15/17 0955 Creatinine 0.86 MG/DL 03/15/17 0955 Estimat Glomerular Filtration Rate 107 ML/MIN 03/15/17 0955 Aspartate Amino Transf (AST/SGOT) 24 U/L 03/15/17 0955 Alanine Aminotransferase (ALT/SGPT) 35 U/L 03/15/17 0955 Alkaline Phosphatase 68 U/L 03/15/17 0955 Vitamin B12 Level 1198 PG/ML H 03/15/17 0955 25-Hydroxy Vitamin D Total 31.4 ng/ML 03/15/17 0955 Thyroid Stimulating Hormone 3rd Gen 1.680 uIU/ML 03/15/17 0955 Urine Opiates Screen NEG 03/14/17 0005 Urine Barbiturates Screen NEG 03/14/17 0005 Urine Amphetamines Screen NEG 03/14/17 0005 Urine Benzodiazepines Screen NEG 03/14/17 0005 Urine Cocaine Screen NEG 03/14/17 0005 Urine Cannabinoids Screen NEG 03/14/174 Ethyl Alcohol Level LESS THAN 3 MG/DL 03/13/179 Vitals/IOs Vital Signs Date Time Temp Pulse Resp B/P (MAP) Pulse Ox O2 Delivery O2 Flow Rate FiO2 03/15/17 06:06 97.1 79 18 105/64 (78) 99 03/14/17 14:29 Room Air Assessment & Plan Problem List: (1) Schizophrenia, paranoid type ICD Codes: F20.0 - Paranoid schizophrenia Assessment & Plan Patient is presently taking 3 antipsychotics. He has a mild resting tremor, which may represent antipsychotic side effect. He likely would benefit from reduction in polypharmacy. We discuss R/B/A of med changes and settle on the following: discontinue Risperdal, titrate Zyprexa to 15mg qHS, continue Invega Sustenna as ordered, and patient will be due for a booster dose of this in the next few days. Titrate Cogentin to 1mg BID for tremor and monitor. Continue Depakote as ordered and check a spot VPA level now and then get a trough Depakote level over the weekend. Monitor vertigo, which is chronic. Fall prec. Continue to monitor on the inpatient unit. Continue other medications and care as ordered. Patient is capacitated to sign voluntary and consent for medications. Justification for Cont. Inpt. Medication changes. Risk for decompensation in less restrictive environment. Discharge Planning pending stabilization Request HC Surrog/Guard Advoc?: No Ariel Robbins MD Mar 15, 2017 09:55
[2017-03-15] MEDS ORDERED: COGE1INJ PO (10:53)
[2017-03-15 11:47] LABS: AUTOMATED NEUTROPHIL # 2.6 TH/MM3 (1.8-7.7); BASOPHIL # 0.1 TH/MM3 (0-0.2); BASOPHIL % 1.1 % (0.0-2.0); EOSINOPHIL # 0.1 TH/MM3 (0-0.4); EOSINOPHIL % 1.5 % (0.0-4.0); HEMATOCRIT 40.8 % (39.0-51.0); HEMOGLOBIN 13.6 GM/DL (13.0-17.0); LYMPH % 34.5 % (9.0-44.0); LYMPHOCYTE # 1.8 TH/MM3 (1.0-4.8); MEAN CELL VOLUME 88.9 FL (80.0-100.0); MEAN CORPUSCULAR HEMOGLOBIN 29.7 PG (27.0-34.0); MEAN CORPUSCULAR HGB CONC 33.4 % (32.0-36.0); MEAN PLATELET VOLUME 8.3 FL (7.0-11.0); MONO % 12.4 % (0.0-8.0); MONOCYTE # 0.6 TH/MM3 (0-0.9); NEUT % 50.5 % (16.0-70.0); PLATELET COUNT 321 TH/MM3 (150-450); RED BLOOD COUNT 4.59 MIL/MM3 (4.50-5.90); RED CELL DISTRIBUTION WIDTH 13.4 % (11.6-17.2); WHITE BLOOD COUNT 5.2 TH/MM3 (4.0-11.0)
[2017-03-15 12:20] LABS: ALBUMIN 3.9 GM/DL (3.4-5.0); AST (GOT) 24 U/L (15-37); BICARBONATE 28.7 MEQ/L (21.0-32.0); BLOOD UREA NITROGEN 9 MG/DL (7-18); CALCIUM 9.2 MG/DL (8.5-10.1); CHLORIDE 103 MEQ/L (98-107); CREATININE 0.86 MG/DL (0.60-1.30); GLOMERULAR FILTRATION RATE 107 ML/MIN (>89); GLUCOSE,RANDOM 100 MG/DL (74-106); SODIUM (NA) 138 MEQ/L (136-145)
[2017-03-15 12:47] LABS: ALKALINE PHOSPHATASE 68 U/L (45-117); ALT (GPT) 35 U/L (12-78); CHOLESTEROL 185 MG/DL (120-200); CHOLESTEROL/ HDL RATIO 3.19 RATIO; HDL CHOLESTEROL 57.9 MG/DL (40.0-60.0); LDL CHOLESTEROL 92 MG/DL (0-99); TOTAL BILIRUBIN ADULT 0.6 MG/DL (0.2-1.0); TOTAL PROTEIN 7.9 GM/DL (6.4-8.2); TRIGLYCERIDES 178 MG/DL (42-150)
[2017-03-15 15:55] LABS: HEMOGLOBIN A1C 5.5 % (4.3-6.0)
[2017-03-15 17:18] VITALS: BP 141/76; PULSE 77; RESP 18; TEMP 98; O2SAT 99
[2017-03-15] MEDS: BENZTROPINE MESYLATE 1 MG TAB PO SCH (20:42)
[2017-03-15] MEDS ORDERED: BENZTROPINE MESYLATE 1 MG TAB PO SCH (21:00)
[2017-03-16 05:29] VITALS: BP 104/74; PULSE 75; RESP 18; TEMP 97; O2SAT 97
[2017-03-16] MEDS: BENZTROPINE MESYLATE 1 MG TAB PO SCH ×2 (08:49→20:50)
[2017-03-16] MEDS: DIVALPROEX SODIUM E.R. 500 MG TAB PO SCH ×2 (08:50→20:50)
--- NOTE | 2017-03-16 12:11 | HHI.PYPN ---
Subjective Chief Complaint: Psychosis Remarks Patient seen and examined. Chart reviewed. Case discussed with nursing staff. No behavioral issues overnight. On my examination today, the patient continues to display some palilalia, although this is perhaps a little less. He denies AVH. He denies SI/HI. Denies side effects from medications. No physical complaints. Hopeful for discharge tomorrow, Monday. Agreeable to booster dose of Sustenna today. Patient has completed SARAH for mother Cecilia Aguirre, and I have spoken with her this afternoon. She notes patient was having some paranoia and increased hallucinations prior to admission but feels he is improved with treatment on the unit. "He's fine." "He's back to himself." She would feel comfortable having patient return home tomorrow, Monday. She thanks me for the call. Review of Systems Except as stated in HPI: all other systems reviewed are Neg Mental Status Examination Appearance: Appropriate Consciousness: Alert Orientation: x4 Motor Activity: Normal gait, Other (no motor abnormalities noted) Speech: Unremarkable Language: Other (Palilalia, ?decreased) Fund of Knowledge: Adequate Attention and Concentration: Adequate Memory: Unremarkable Mood: Appropriate Affect: Blunt Thought Process & Associations: Intact, Linear Thought Content: Appropriate Hallucination Type: None Delusion Type: None Suicidal Ideation: No Suicidal Plan: No Suicidal Intention: No Homicidal Ideation: No Homicidal Plan: No Homicidal Intention: No Insight: Fair Judgment: Adequate (fair) Results Labs Labs reviewed. Spot Depakote level within the therapeutic range. Vitals/IOs Vital Signs Date Time Temp Pulse Resp B/P (MAP) Pulse Ox O2 Delivery O2 Flow Rate FiO2 03/16/17 05:29 97.0 75 18 104/74 (84) 97 03/14/17 14:29 Room Air Assessment & Plan Problem List: (1) Schizophrenia, paranoid type ICD Codes: F20.0 - Paranoid schizophrenia Assessment & Plan Administer scheduled booster dose of Invega Sustenna 234 mg IM today. Continue Depakote and Zyprexa as ordered. Continue to monitor on the inpatient unit. Continue other medications and care as ordered. Justification for Cont. Inpt. Med changes. Discharge Planning Possible discharge tomorr, Monday. Request HC Surrog/Guard Advoc?: No Ariel Robbins MD Mar 16, 2017 12:11
[2017-03-16] MEDS ORDERED: PALIPERIDONE PALMITATE 234 MG/1.5 ML SYRINGE IM ONE (16:00)
[2017-03-16 17:15] VITALS: BP 101/64; PULSE 109; RESP 18; TEMP 98.2; O2SAT 98
--- NOTE | 2017-03-17 00:01 | EKG ---
Date Performed: 03/15/2017 Time Performed: 13:35:51 PTAGE: 26 years EKG: Sinus rhythm NORMAL ECG PREVIOUS TRACING : 08/31/2016 12.52 Since the prior tracing, there has been no significant varela DOCTOR: Justino Murcia Interpretating Date/Time 03/16/2017 23:59:39
[2017-03-17 05:54] VITALS: BP 104/55; PULSE 67; RESP 16; TEMP 99; O2SAT 98
[2017-03-17] MEDS: BENZTROPINE MESYLATE 1 MG TAB PO SCH (08:30)
[2017-03-17] MEDS: DIVALPROEX SODIUM E.R. 500 MG TAB PO SCH (08:30)
[2017-03-17] MEDS ORDERED: Benztropine PO (13:20)
[2017-03-17] MEDS ORDERED: OLAN15TA PO (13:20)
[2017-03-17] MEDS ORDERED: PALI234P IM (13:20)
[2017-03-17] MEDS ORDERED: DEPA500T3 PO (13:20)
--- NOTE | 2017-03-17 13:21 | HHI.DS ---
Psychiatry Discharge Summary Inpatient Psychiatric care?: Yes Advance Directive: No Reason Not Provided: Due to Patient Condition Mental Health AdvanceDirective: No Health Care Proxy: No Admission Admission Date Mar 14, 2017 at 15:32 Admission Diagnosis: (1) Schizophrenia, paranoid type ICD Code: F20.0 - Paranoid schizophrenia Brief History This is a 26-year-old male with a history of schizophrenia, Lala acted last evening by law enforcement. According to the Lala act, the patient has been experiencing auditory hallucinations. The hallucinations have been telling him to suffocate himself with a pillow. At the time of the law enforcement officers evaluation, the patient was unaware of his diagnosis. Upon interview, the patient does indeed admitted to auditory hallucinations telling him to kill himself. (By suffocation with a pillow.) Patient has been admitted here at least on 2 previous occasions, the last being in August 2016. At that time he was also experiencing auditory hallucinations telling him to harm himself. He is apparently treated at [facility] and this physician is unaware as to the patient's compliance with medications and appointments. It is notable that the patient is treated with 3 different antipsychotics, including Zyprexa, Risperdal and in [place]. He is also treated with Depakote. The only medicine the patient can remember is Depakote. The patient also demonstrates significant palilalia. He repeats words and phrases many times as he attempts to communicate. He remains unable to tell this physician where he is treated or the name of his provider. He is claiming that he got a good night 's sleep last evening and therefore the command auditory hallucinations have lessened. From a biological standpoint, this physician feels that is unlikely. The patient is not isiah for safety. Tobacco Use In Past 30 Days: No Tobacco Past 30 Days Alcohol Use: Never Hospital Course Patient was admitted to a locked, inpatient psychiatric unit. Appropriate precautions were in place throughout patient's hospital stay. Patient was seen and examined on the unit by psychiatry and also visited by counselor. Psychotropic medications were adjusted. Risperdal was discontinued and Zyprexa was titrated. Patient was also provided with scheduled booster dose of Invega Sustenna 234 mg IM on 03/16. Patient tolerated medication changes well without side effects. Patient had improvement in presenting psychiatric symptomatology. There was no evidence of any suicidality or homicidality on the inpatient unit. Patient remained in good behavioral control throughout and was compliant with medications. Reassuring collateral was obtained from the patient's mother. On the day of discharge: Patient seen and examined with nurse. Chart reviewed. Case discussed with nursing staff. No behavioral issues noted overnight. Case discussed in treatment team. On my examination today, the patient is requesting discharge from the inpatient psychiatric unit today. He denies any suicidal or homicidal ideation, intent or plan on direct questioning and contracts for safety. He denies any audiovisual hallucinations. I can elicit no delusional material. No mood symptoms elicited. Denies side effects from medications. No physical complaints. Suicide and violence risk assessment on day of discharge both suggest lower imminent risk, and the patient's level of function is adequate for outpatient care. Patient is requesting discharge from the inpatient psychiatric unit today and does not meet criteria for involuntary psychiatric hospitalization at this time. He has maximized benefit from this inpatient psychiatric hospital stay. He will be discharged home today with psychiatric follow-up as arranged by counselor. Patient is also to follow-up with primary care. Patient to return to the psychiatric emergency room for any concerning psychiatric symptoms as part of a general safety plan. Results Blood Pressure 104 / 55 Vital Signs Date Time Temp Pulse Resp B/P (MAP) Pulse Ox O2 Delivery O2 Flow Rate FiO2 03/17/17 05:54 99.0 67 16 104/55 (71) 98 03/14/17 14:29 Room Air Laboratory Tests Test 03/15/17 09:55 Monocytes (%) (Auto) 12.4 % (0.0-8.0) Triglycerides Level 178 MG/DL (42-150) Vitamin B12 Level 1198 PG/ML (193-986) Laboratory Results Test 03/15/17 09:55 Cholesterol Level 185 MG/DL (120-200) HDL Cholesterol 57.9 MG/DL (40.0-60.0) Hemoglobin A1c 5.5 % (4.3-6.0) LDL Cholesterol 92 MG/DL (0-99) Triglycerides Level 178 MG/DL (42-150) Valproic Acid (Depakene) Level 79 MCG/ML (50-100) Summary of Procedures None done Imaging None done Pending results at discharge: No Medications # of Antipsychotic meds at D/C: 2 Appropriate >1 Antipsych meds?: 4 Approp Antipsych med options 1 - Minimum of three failed multiple trials of monotherapy. 2 - Documented plan to taper to monotherapy due to previous use of multiple meds OR cross-taper in progress at D/C. 3 - Documentation of augmentation of Clozapine. 4 - Justification other than those listed in allowable values 1-3, document here : Polypharmacy reduced from 3 antipsychotics to 2 this admission. Defer further reduction to outpatient provider. Discharge Discharge Date: Mar 17, 2017 Discharge Diagnosis: (1) Schizophrenia, paranoid type Diagnosis: Principal (stabilized) ICD Code: F20.0 - Paranoid schizophrenia Pt Condition on Discharge: Stable Discharge Disposition: Discharge Home Discharge Instructions Diet Instructions: As Tolerated, No Restrictions Activities you can perform: Weight Bearing as Jailene Scheduled Appointment: Daniel Gutierrez Appointment Date: Apr 03, 2017 Appointment Time: 1pm New Orders: AMMONIA - 1 Week DEPAKENE - 1 Week New Medications: Paliperidone Palmitate Inj (Invega Sustenna Inj) 234 Mg/1.5 Ml Inj 234 MG IM Q28D for Schizophrenia, #1 VIAL 0 Refills This dose of Invega Sustenna is due on 04/13/2017. Olanzapine (Olanzapine) 15 Mg Tab 15 MG PO HS for Mental Health for 15 Days, TAB 1 Refill [Benztropine] () 1 MG TAB 1 MG PO BID for Side effect management for 15 Days, 1 Refill Continued Medications: Divalproex ER (Depakote ER) 500 Mg Shashi 500 MG PO BID for Mental Health for 15 Days, #30 TAB 1 Refill (This prescription has been renewed) Discontinued Medications: Benztropine Inj (Cogentin Inj) 2 Mg/2 Ml Inj 1 MG PO HS, VIAL Olanzapine (Olanzapine) 15 Mg Tab 7.5 MG PO HS for Mental Health for 15 Days, TAB 1 Refill Paliperidone Palmitate Inj (Invega Sustenna Inj) 234 Mg/1.5 Ml Inj 234 MG IM Q28D for health, #1 VIAL 2 Refills Risperidone (Risperdal) 1 Mg Tab 2 MG PO DAILY@08,20 for Mental Health for 15 Days, TAB 1 Refill Discharge Time <= 30 minutes Mental Status Examination Appearance: Appropriate Consciousness: Alert Orientation: x4 Motor Activity: Normal gait, Other (no abnormal motor movements noted) Speech: Unremarkable Language: Other (Decreased palilalia) Fund of Knowledge: Adequate Attention and Concentration: Adequate Memory: Unremarkable Mood: Appropriate Affect: Blunt (somewhat more reactive today versus yesterday) Thought Process & Associations: Intact, Logical, Linear Thought Content: Appropriate Hallucination Type: None Delusion Type: None Suicidal Ideation: No Suicidal Plan: No Suicidal Intention: No Homicidal Ideation: No Homicidal Plan: No Homicidal Intention: No Insight: Adequate Judgment: Adequate Discharge/Advance Care Plan Health Problems: (1) Schizophrenia, paranoid type Goals to promote your health * To prevent worsening of your condition and complications * To maintain your health at the optimal level Directions to meet your goals Take your medications as prescribed Follow your dietary instruction Follow activity as directed Keep your appointments as scheduled Take your immunizations and boosters as scheduled If your symptoms worsen call your PCP, if no PCP go to Urgent Care Center or Emergency Room For 12/09 questions related to your inpatient stay or results of tests pending at discharge, please contact Dr. Ariel Robbins at Smoking is Dangerous to Your Health. Avoid second hand smoking Ariel Robbins MD Mar 17, 2017 13:21
== END 2017-03-17 16:20 | disposition home or self-care (01) | DRG 885 ==
LOC: NEPD 21:37 → NEDA 03-14 15:32 → H270 03-14 16:20
PROVIDERS: ADMIT Psychiatry & Neurology Psychiatry; ATTEND Psychiatry & Neurology Psychiatry
DX: F20.0 Paranoid schizophrenia (principal); G25.1 Drug-induced tremor; R48.8 Other symbolic dysfunctions; T43.505A Adverse effect of unspecified antipsychotics and neuroleptics, initial encounter; R42 Dizziness and giddiness
CPT/HCPCS: 80048; 80053; 80061; 80164; 80307; 82306; 82607; 83036; 84443; 85025; 93005; 99285; J2426

== ENCOUNTER 2017-06-09 20:41 | Inpatient (IN) | payer OTHER, MEDICARE ==
[~2017-06-09] VITALS: Ht 185.4 cm; Wt 69.2 kg
[~2017-06-09 20:41] MED LIST changes: -BENZ1TAB PO; +Benztropine PO; -RISP1 PO
[2017-06-09 20:45] VITALS: BP 126/73; PULSE 104; RESP 16; TEMP 98.3; O2SAT 96
--- NOTE | 2017-06-09 21:57 | PD ---
HPI Chief Complaint: Psychiatric Symptoms Time Seen by Provider: 21:43 Travel History International Travel<30 days: No Contact w/Intl Traveler<30days: No Traveled to known affect area: No History of Present Illness HPI 27-year-old white male resents emergency department on a voluntary basis. Patient states that he has been feeling increasingly depressed and having suicidal thoughts. Patient denies any active plan. No homicidal ideation. No toxic ingestions. He states that his been compliant with medications. He is cared for by family members at home. He is unsure of the medications he takes other than Depakote. He denies any medical complaints at this time. He has not been sick. He does not smoke, drink or do drugs. PFSH Past Medical History Asthma: Yes ( A CHILD) Autoimmune Disease: No Anxiety: Yes Cancer: No (per patient) Cardiovascular Problems: No (per patient) Diabetes: No (per patient) Diminished Hearing: No Gastrointestinal Disorders: No Genitourinary: No Headaches: No (per patient) Musculoskeletal: No Neurologic: Yes Psychiatric: Yes ([facility]) Respiratory: No Immunizations Current: Yes Schizophrenia: Yes Seizures: No (per patient) Tetanus Vaccination: < 5 Years Past Surgical History Other Surgery: Yes (CANCER REMOVED ON BACK IN 2002) Social History Alcohol Use: Yes Tobacco Use: No Substance Use: No Allergies-Medications (Allergen,Severity, Reaction): Coded Allergies: No Known Allergies (Verified Allergy, Unknown, 06/09/17) Uncoded Allergies: CATS,& CAT DANDER (Allergy, Mild, 05/22/06) Reported Meds & Prescriptions Reported Meds & Active Scripts Active Invega Sustenna Inj (Paliperidone Palmitate) 234 Mg/1.5 Ml Inj 234 Mg IM Q28D This dose of Invega Sustenna is due on 04/13/2017. [Benztropine] 1 MG Tab 1 Mg PO BID 15 Days Olanzapine 15 Mg Tab 15 Mg PO HS 15 Days Depakote ER (Divalproex Sodium) 500 Mg Shashi 500 Mg PO BID 15 Days Review of Systems General / Constitutional: No: Fever Eyes: No: Visual changes HENT: No: Headaches Cardiovascular: No: Chest Pain or Discomfort Respiratory: No: Shortness of Breath Gastrointestinal: No: Abdominal Pain Genitourinary: No: Dysuria Musculoskeletal: No: Pain Skin: No Rash Neurologic: No: Weakness Psychiatric: Positive: Depression, Suicidal Ideations, No: Anxiety, Disorder of Thought, Mood Disorder, Substance Abuse, Homicidal Ideation Endocrine: No: Polydipsia Hematologic/Lymphatic: No: Easy Bruising Physical Exam Narrative GENERAL: Well-nourished, well-developed patient. SKIN: Warm and dry. HEAD: Normocephalic and atraumatic. EYES: No scleral icterus. No injection or drainage. ENT: No nasal drainage noted. Mucous membranes pink. Airway patent. NECK: Supple, trachea midline. Moves head freely without obvious discomfort. CARDIOVASCULAR: Regular rate and rhythm without murmurs, gallops, or rubs. RESPIRATORY: Breath sounds equal bilaterally. No accessory muscle use. GASTROINTESTINAL: Abdomen soft, non-tender, nondistended. EXTREMITIES: No cyanosis or edema. BACK: Nontender without obvious deformity. No CVA tenderness. NEURO: Patient is alert and oriented. no sensorimotor deficits. Nonfocal. Normal speech. PSYCH: No delusions. No auditory or visual hallucinations. Data Data Last Documented VS Vital Signs Date Time Temp Pulse Resp B/P (MAP) Pulse Ox O2 Delivery O2 Flow Rate FiO2 06/09/17 22:35 98.6 94 17 122/67 (85) 98 Room Air Orders Orders Complete Blood Count With Diff (06/09/17 21:08) Comprehensive Metabolic Panel (06/09/17 21:08) Thyroid Stimulating Hormone (06/09/17 21:08) Psych Screen (06/09/17 21:08) Drug Screen, Random Urine (06/09/17 21:08) Alcohol (Ethanol) (06/09/17 21:08) Salicylates (Aspirin) (06/09/17 21:08) Tylenol (Acetaminophen) (06/09/17 21:08) Valproic Acid (Depakene) (06/09/17 21:24) Labs Laboratory Tests Test 06/09/17 21:45 06/09/17 21:50 White Blood Count 10.7 TH/MM3 Red Blood Count 4.41 MIL/MM3 Hemoglobin 13.4 GM/DL Hematocrit 39.0 % Mean Corpuscular Volume 88.6 FL Mean Corpuscular Hemoglobin 30.3 PG Mean Corpuscular Hemoglobin Concent 34.2 % Red Cell Distribution Width 13.2 % Platelet Count 293 TH/MM3 Mean Platelet Volume 7.7 FL Neutrophils (%) (Auto) 76.9 % Lymphocytes (%) (Auto) 15.9 % Monocytes (%) (Auto) 6.5 % Eosinophils (%) (Auto) 0.1 % Basophils (%) (Auto) 0.6 % Neutrophils # (Auto) 8.2 TH/MM3 Lymphocytes # (Auto) 1.7 TH/MM3 Monocytes # (Auto) 0.7 TH/MM3 Eosinophils # (Auto) 0.0 TH/MM3 Basophils # (Auto) 0.1 TH/MM3 CBC Comment DIFF FINAL Differential Comment Blood Urea Nitrogen 12 MG/DL Creatinine 0.92 MG/DL Random Glucose 90 MG/DL Total Protein 7.8 GM/DL Albumin 4.0 GM/DL Calcium Level 9.0 MG/DL Alkaline Phosphatase 60 U/L Aspartate Amino Transf (AST/SGOT) 17 U/L Alanine Aminotransferase (ALT/SGPT) 20 U/L Total Bilirubin 0.2 MG/DL Sodium Level 141 MEQ/L Potassium Level 3.8 MEQ/L Chloride Level 103 MEQ/L Carbon Dioxide Level 29.8 MEQ/L Anion Gap 8 MEQ/L Estimat Glomerular Filtration Rate 98 ML/MIN Thyroid Stimulating Hormone 3rd Gen 2.320 uIU/ML Salicylates Level LESS THAN 1.7 MG/DL Acetaminophen Level LESS THAN 2.0 MCG/ML Valproic Acid (Depakene) Level 89 MCG/ML Ethyl Alcohol Level LESS THAN 3 MG/DL Urine Opiates Screen NEG Urine Barbiturates Screen NEG Urine Amphetamines Screen NEG Urine Benzodiazepines Screen NEG Urine Cocaine Screen NEG Urine Cannabinoids Screen NEG MDM Medical Decision Making Medical Screen Exam Complete: Yes Emergency Medical Condition: Yes Medical Record Reviewed: Yes Interpretation(s) Laboratory Tests Test 06/09/17 21:45 06/09/17 21:50 White Blood Count 10.7 TH/MM3 Red Blood Count 4.41 MIL/MM3 Hemoglobin 13.4 GM/DL Hematocrit 39.0 % Mean Corpuscular Volume 88.6 FL Mean Corpuscular Hemoglobin 30.3 PG Mean Corpuscular Hemoglobin Concent 34.2 % Red Cell Distribution Width 13.2 % Platelet Count 293 TH/MM3 Mean Platelet Volume 7.7 FL Neutrophils (%) (Auto) 76.9 % Lymphocytes (%) (Auto) 15.9 % Monocytes (%) (Auto) 6.5 % Eosinophils (%) (Auto) 0.1 % Basophils (%) (Auto) 0.6 % Neutrophils # (Auto) 8.2 TH/MM3 Lymphocytes # (Auto) 1.7 TH/MM3 Monocytes # (Auto) 0.7 TH/MM3 Eosinophils # (Auto) 0.0 TH/MM3 Basophils # (Auto) 0.1 TH/MM3 CBC Comment DIFF FINAL Differential Comment Blood Urea Nitrogen 12 MG/DL Creatinine 0.92 MG/DL Random Glucose 90 MG/DL Total Protein 7.8 GM/DL Albumin 4.0 GM/DL Calcium Level 9.0 MG/DL Alkaline Phosphatase 60 U/L Aspartate Amino Transf (AST/SGOT) 17 U/L Alanine Aminotransferase (ALT/SGPT) 20 U/L Total Bilirubin 0.2 MG/DL Sodium Level 141 MEQ/L Potassium Level 3.8 MEQ/L Chloride Level 103 MEQ/L Carbon Dioxide Level 29.8 MEQ/L Anion Gap 8 MEQ/L Estimat Glomerular Filtration Rate 98 ML/MIN Thyroid Stimulating Hormone 3rd Gen 2.320 uIU/ML Salicylates Level LESS THAN 1.7 MG/DL Acetaminophen Level LESS THAN 2.0 MCG/ML Valproic Acid (Depakene) Level 89 MCG/ML Ethyl Alcohol Level LESS THAN 3 MG/DL Urine Opiates Screen NEG Urine Barbiturates Screen NEG Urine Amphetamines Screen NEG Urine Benzodiazepines Screen NEG Urine Cocaine Screen NEG Urine Cannabinoids Screen NEG Differential Diagnosis MDM: High Differential diagnoses: Schizophrenia, schizoaffective disorder, bipolar, anxiety, depression, adjustment reaction, mood disorder NOS, ODD, depressive disorder NOS, dementia, dementia with agitation, psychosis NOS, substance induced mood disorder, DMDD, Asperger syndrome, infection,electrolyte abnormality, malingering. Mental health screening discussed with the patient. Psychiatric screen ordered. Narrative Course Mental health screening discussed with the patient. Psychiatric screen ordered. Patient has been medically cleared. This medical clearance for psychiatric admission Diagnosis Primary Impression: Medical clearance for psychiatric admission Condition: Stable Reginaldo Goldman Jun 09, 2017 21:57
[2017-06-09 22:00] LABS: AUTOMATED NEUTROPHIL # 8.2 TH/MM3 (1.8-7.7); BASOPHIL # 0.1 TH/MM3 (0-0.2); BASOPHIL % 0.6 % (0.0-2.0); EOSINOPHIL % 0.1 % (0.0-4.0); HEMOGLOBIN 13.4 GM/DL (13.0-17.0); LYMPH % 15.9 % (9.0-44.0); LYMPHOCYTE # 1.7 TH/MM3 (1.0-4.8); MEAN CELL VOLUME 88.6 FL (80.0-100.0); MEAN CORPUSCULAR HEMOGLOBIN 30.3 PG (27.0-34.0); MEAN CORPUSCULAR HGB CONC 34.2 % (32.0-36.0); MEAN PLATELET VOLUME 7.7 FL (7.0-11.0); MONO % 6.5 % (0.0-8.0); MONOCYTE # 0.7 TH/MM3 (0-0.9); NEUT % 76.9 % (16.0-70.0); PLATELET COUNT 293 TH/MM3 (150-450); RED BLOOD COUNT 4.41 MIL/MM3 (4.50-5.90); RED CELL DISTRIBUTION WIDTH 13.2 % (11.6-17.2); WHITE BLOOD COUNT 10.7 TH/MM3 (4.0-11.0)
[2017-06-09 22:21] LABS: ALT (GPT) 20 U/L (12-78); AST (GOT) 17 U/L (15-37); BICARBONATE 29.8 MEQ/L (21.0-32.0); BLOOD UREA NITROGEN 12 MG/DL (7-18); CHLORIDE 103 MEQ/L (98-107); CREATININE 0.92 MG/DL (0.60-1.30); GLOMERULAR FILTRATION RATE 98 ML/MIN (>89); GLUCOSE,RANDOM 90 MG/DL (74-106); SODIUM (NA) 141 MEQ/L (136-145)
[2017-06-09 22:31] LABS: ALKALINE PHOSPHATASE 60 U/L (45-117); TOTAL BILIRUBIN ADULT 0.2 MG/DL (0.2-1.0); TOTAL PROTEIN 7.8 GM/DL (6.4-8.2)
[2017-06-09 22:35] VITALS: BP 122/67; PULSE 94; RESP 17; TEMP 98.6; O2SAT 98
[2017-06-09 22:52] LABS: ACETAMINOPHEN LESS THAN 2.0 MCG/ML (10.0-30.0)
[2017-06-10 06:24] VITALS: BP 103/63; PULSE 56; RESP 18; TEMP 99.5; O2SAT 97
--- NOTE | 2017-06-10 09:39 | HHI.HP ---
Provisional Diagnosis Admission Date Jun 10, 2017 at 09:15 [place] I. 1. Schizophrenia, paranoid type [place] II. Deferred Certification of Person's Competence To Provide Express and Informed Consent I have personally examined Kyler Aguirre , a person being served at [facility] on, Jun 10, 2017 09:39. Express and informed consent means consent voluntarily given in writing, by a competent person, after sufficient explanation and disclosure of the subject matter involved to enable the person to make a knowing and willful decision without any element of force, fraud, deceit, duress, or other form of constraint or coercion. This person is 18 years of age or older, is not now known to be incompetent to consent to treatment with a guardian advocate, and does not have a health care surrogate or proxy currently making medical treatment decisions. I have found this person to be one of the following: [x] Competent to provide express and informed consent, as defined above, for voluntary admission to this facility and is competent to provide express and informed consent for treatment. He/she has the consistent capacity to make well reasoned, willful, and knowing decisions concerning his or her medical or mental health treatment. The person fully and consistently understands the purpose of the admission for examination/placement and is fully capable of personally exercising all rights assured [place] Incompetent to provide express and informed consent to voluntary admission, and this is incompetent to provide express and informed consent to treatment. The person must be transferred to involuntary status and a petition for a guardian advocate filed with the Circuit Court. [] Refusing to provide express and informed consent to voluntary admission but is competent to provide express and informed consent for treatment. The person must be discharged or transferred to involuntary status. Form shall be completed within 24 hours of a person's arrival at the receiving facility and filed in the clinical record of each person: 1. Admitted on a voluntary basis 2. Permitted to provide express and informed consent to his/her own treatment 3. Allowed to transfer from involuntary to voluntary status 4. Prior to permitting a person to consent to his or her own treatment after having been previously found incompetent to consent to treatment. History of Present Illness Capacity: Has Capacity Psych Chief Complaint: Suicidal ideation HPI Mr. Aguirre is a 27-year-old male with psychiatric history of schizophrenia who presents voluntarily for worsening depression and suicidal ideation. Reviewing the electronic medical record, I note the patient was admitted under my care in February of this year. Patient seen and examined. Chart reviewed. Case discussed with nursing staff. On my examination today, the patient reports onset of suicidal ideation 1 day. He has no plan. No reported urge to hurt himself on the inpatient unit. He exhibits palilalia as noted previously. He denies feeling more depressed to me and likewise denies anhedonia. He says that he continues to enjoy playing computer games. He denies any audiovisual hallucinations. I can elicit no paranoia, no thought insertion or withdrawal, no ideas of reference, no grandiosity, no other delusional material. He denies any hopelessness or worthlessness. His sleep and appetite are fair. I can elicit no hypomanic or manic symptoms. The patient does describe some increased anger of late. He denies any homicidal ideation. He denies that his anger is directed against any specific victim. Remainder of the psychiatric ROS is negative. No acute physical complaints. Past psychiatric history: Patient has a history of schizophrenia. He follows at [facility]. He denies any recent psychiatric admissions. Denies any recent suicide attempts or violent behavior. He reports that he is medication compliant. He reports that he got his Invega Sustenna injection a week or 2 ago. Family history: The patient denies family history of mental illness. Chemical dependency history: The patient denies any abuse of drugs or alcohol. Social history: The patient reports that he stays with his mother. He denies any access to guns or firearms. He has 1/10 grade education. Denies any legal history. He is single with no children. Review of Systems Except as stated in HPI: all other systems reviewed are Neg Past Family Social History Coded Allergies: No Known Allergies (Verified Allergy, Unknown, 06/09/17) Uncoded Allergies: CATS,& CAT DANDER (Allergy, Mild, 05/22/06) Past Medical History See electronic medical record Active Scripts Paliperidone Palmitate Inj (Invega Sustenna Inj) 234 Mg/1.5 Ml Inj, 234 MG IM Q28D for Schizophrenia, #1 VIAL 0 Refills This dose of Invega Sustenna is due on 04/13/2017. Prov:Ariel Robbins MD 03/17/17 [Benztropine] 1 MG TAB No Conflict Check, 1 MG PO BID for Side effect management for 15 Days, 1 Refill Prov:Ariel Robbins MD 03/17/17 Olanzapine (Olanzapine) 15 Mg Tab, 15 MG PO HS for Mental Health for 15 Days, TAB 1 Refill Prov:Ariel Robbins MD 03/17/17 Divalproex ER (Depakote ER) 500 Mg Shashi, 500 MG PO BID for Mental Health for 15 Days, #30 TAB 1 Refill Prov:Ariel Robbins MD 03/17/17 Current Medications Medications (Trade) Dose Ordered Sig/Balta Route Start Time Stop Time Status Last Admin (Depakote Er) 500 mg BID PO 06/10/17 21:00 (ZyPREXA) 15 mg HS PO 06/10/17 21:00 (Cogentin) 1 mg BID PO 06/10/17 21:00 (Ativan) 1 mg Q6H PRN PO 06/10/17 10:00 (Ativan Inj) 1 mg Q6H PRN IM 06/10/17 10:00 (Benadryl) 50 mg HS PRN PO 06/10/17 10:00 (Tylenol) 650 mg Q4H PRN PO 06/10/17 10:00 (Milk Of Magnesia Liq) 30 ml DAILY PRN PO 06/10/17 10:00 (Mag-Al Plus Susp Liq) 30 ml Q6H PRN PO 06/10/17 10:00 (Habitrol 21 Mg Patch.24 Hr) 1 patch DAILY PRN T-DERMAL 06/10/17 10:00 (Cogentin) 1 mg Q12H PRN PO 06/10/17 10:00 (Cogentin Inj) 1 mg Q12H PRN IM 06/10/17 10:00 Miscellaneous Information 1 DAILY T-DERMAL 06/10/17 10:00 Patient's Strengths (min. 2) In a monitored setting. Verbally fluent. Physical Exam Physical exam completed by ED provider. On my examination today, the patient appears to be in no acute physical distress. No motor abnormalities noted. Labs and vitals reviewed: Vital Signs Vital Signs Date Time Temp Pulse Resp B/P (MAP) Pulse Ox O2 Delivery O2 Flow Rate FiO2 06/10/17 06:24 99.5 56 18 103/63 (76) 97 Room Air Lab Results Test 06/09/17 21:45 06/09/17 21:50 White Blood Count 10.7 TH/MM3 Red Blood Count 4.41 MIL/MM3 Hemoglobin 13.4 GM/DL Hematocrit 39.0 % Mean Corpuscular Volume 88.6 FL Mean Corpuscular Hemoglobin 30.3 PG Mean Corpuscular Hemoglobin Concent 34.2 % Red Cell Distribution Width 13.2 % Platelet Count 293 TH/MM3 Mean Platelet Volume 7.7 FL Neutrophils (%) (Auto) 76.9 % Lymphocytes (%) (Auto) 15.9 % Monocytes (%) (Auto) 6.5 % Eosinophils (%) (Auto) 0.1 % Basophils (%) (Auto) 0.6 % Neutrophils # (Auto) 8.2 TH/MM3 Lymphocytes # (Auto) 1.7 TH/MM3 Monocytes # (Auto) 0.7 TH/MM3 Eosinophils # (Auto) 0.0 TH/MM3 Basophils # (Auto) 0.1 TH/MM3 CBC Comment DIFF FINAL Differential Comment Blood Urea Nitrogen 12 MG/DL Creatinine 0.92 MG/DL Random Glucose 90 MG/DL Total Protein 7.8 GM/DL Albumin 4.0 GM/DL Calcium Level 9.0 MG/DL Alkaline Phosphatase 60 U/L Aspartate Amino Transf (AST/SGOT) 17 U/L Alanine Aminotransferase (ALT/SGPT) 20 U/L Total Bilirubin 0.2 MG/DL Sodium Level 141 MEQ/L Potassium Level 3.8 MEQ/L Chloride Level 103 MEQ/L Carbon Dioxide Level 29.8 MEQ/L Anion Gap 8 MEQ/L Estimat Glomerular Filtration Rate 98 ML/MIN Thyroid Stimulating Hormone 3rd Gen 2.320 uIU/ML Salicylates Level LESS THAN 1.7 MG/DL Acetaminophen Level LESS THAN 2.0 MCG/ML Valproic Acid (Depakene) Level 89 MCG/ML Ethyl Alcohol Level LESS THAN 3 MG/DL Urine Opiates Screen NEG Urine Barbiturates Screen NEG Urine Amphetamines Screen NEG Urine Benzodiazepines Screen NEG Urine Cocaine Screen NEG Urine Cannabinoids Screen NEG Depakote level therapeutic Mental Status Examination Appearance: Disheveled Consciousness: Alert Orientation: x4 Motor Activity: Other (No motor abnormalities noted) Speech: Other ([place]) Language: Adequate Fund of Knowledge: Adequate Attention and Concentration: Adequate Memory: Unremarkable Mood: Appropriate Affect: Blunt Thought Process & Associations: Intact, Logical, Linear Thought Content: Appropriate Hallucination Type: None Delusion Type: None Suicidal Ideation: Yes Suicidal Plan: No Suicidal Intention: No (No reported urge to hurt self on an inpatient unit) Homicidal Ideation: No Homicidal Plan: No Homicidal Intention: No Insight: Fair Judgment: Impulsive Assessment & Plan Problem List: (1) Schizophrenia, paranoid type ICD Codes: F20.0 - Paranoid schizophrenia Assessment & Plan 27-year-old male with psychiatric history as detailed above presents for psychiatric evaluation. The patient reports suicidal ideation 1 day with no plan at this point. He also reports increasing irritable/angry thoughts although he has no homicidal ideation. He reports adherence with psychotropic medications. I will plan to admit the patient to the inpatient psychiatric unit for observation for impairment in safety. Admitted inpatient. Voluntary status. Continue Depakote, Zyprexa and Cogentin as ordered in med rec. Patient reports that he received Invega Sustenna within the last week or 2. Ativan as needed for anxiety, Cogentin as needed for EPS, Benadryl as needed for sleep. Vitals every shift. Counselor to see. Disposition planning. Estimated length of stay: Pending outcome of observation but anticipate 2-3 days. Discharge Planning Pending outcome of observation Request HC Surrog/Guard Advoc?: No Ariel Robbins MD Jun 10, 2017 09:39
[2017-06-10] MEDS ORDERED: ALUMINUM/MAGNESIUM/SIMETH 30 ML CUP PO PRN (10:00)
[2017-06-10] MEDS ORDERED: BENZTROPINE MESYLATE 1 MG TAB PO PRN (10:00)
[2017-06-10] MEDS ORDERED: LORazepam 1 MG TAB PO PRN (10:00)
[2017-06-10] MEDS ORDERED: ACETAMINOPHEN 325 MG TAB PO PRN (10:00)
[2017-06-10] MEDS ORDERED: NICOTINE 21 MG/24 HR PATCH T-DERMAL PRN (10:00)
[2017-06-10] MEDS ORDERED: MAGNESIUM HYDROXIDE SUSP 30 ML CUP PO PRN (10:00)
[2017-06-10] MEDS ORDERED: diphenhydrAMINE HCL 50 MG CAP PO PRN (10:00)
[2017-06-10] MEDS ORDERED: BENZTROPINE MESYLATE 2 MG/2 ML VIAL IM PRN (10:00)
[2017-06-10] MEDS ORDERED: LORazepam 2 MG/ML VIAL IM PRN (10:00)
[2017-06-10] MEDS: REMOVE OLD PATCH T-DERMAL SCH (10:24)
[2017-06-10 12:30] VITALS: BP 130/60; PULSE 92; RESP 18; TEMP 98.2; O2SAT 97
[2017-06-10 18:10] VITALS: BP 124/81; PULSE 110; RESP 20; TEMP 98.8; O2SAT 99
[2017-06-10 18:26] VITALS: BP 124/81; PULSE 110; RESP 20; TEMP 98.8; O2SAT 99
[2017-06-10] MEDS: DIVALPROEX SODIUM E.R. 500 MG TAB PO SCH (20:20)
[2017-06-10] MEDS: BENZTROPINE MESYLATE 1 MG TAB PO SCH (20:20)
[2017-06-11 06:27] VITALS: BP 96/53; PULSE 53; RESP 16; TEMP 97.4; O2SAT 97
[2017-06-11] MEDS: REMOVE OLD PATCH T-DERMAL SCH (09:00)
[2017-06-11] MEDS: BENZTROPINE MESYLATE 1 MG TAB PO SCH ×2 (09:02→20:32)
[2017-06-11] MEDS: DIVALPROEX SODIUM E.R. 500 MG TAB PO SCH ×2 (09:02→20:32)
[2017-06-11 11:49] LABS: CHOLESTEROL 156 MG/DL (120-200); TRIGLYCERIDES 61 MG/DL (42-150)
--- NOTE | 2017-06-11 11:50 | HHI.PYPN ---
Subjective Chief Complaint: Suicidal ideation Remarks Patient was seen and case discussed with nursing. Patient is very flat and internally preoccupied. There is some stuttering with speech and a resting tremor of his left hand and some bilateral tremors of both feet. Patient says this started a couple months ago. He denies any hallucinations or delusions what is likely responding to internal stimuli. He says his mood has improved and today he is no longer suicidal or homicidal ideation intent or plan. Largely seclusive to room Mental Status Examination Appearance: Disheveled Consciousness: Alert Orientation: x4 Motor Activity: Other (No motor abnormalities noted) Speech: Other ([place]) Language: Adequate Fund of Knowledge: Adequate Attention and Concentration: Adequate Memory: Unremarkable Mood: Appropriate Affect: Labile Thought Process & Associations: Loose associations Thought Content: Appropriate Hallucination Type: None Delusion Type: None Suicidal Ideation: No Suicidal Plan: No Suicidal Intention: No (No reported urge to hurt self on an inpatient unit) Homicidal Ideation: No Homicidal Plan: No Homicidal Intention: No Insight: Fair Judgment: Impulsive Results Labs Test 06/11/17 09:50 Vitals/IOs Vital Signs Date Time Temp Pulse Resp B/P (MAP) Pulse Ox O2 Delivery O2 Flow Rate FiO2 06/11/17 06:27 97.4 53 16 96/53 (67) 97 06/10/17 06:24 Room Air Assessment & Plan Problem List: (1) Schizophrenia, paranoid type ICD Codes: F20.0 - Paranoid schizophrenia Assessment & Plan Increase Cogentin to 2 mg p.o. twice daily Justification for Cont. Inpt. Patient would decompensate in a less restrictive setting Request HC Surrog/Guard Advoc?: No Nixon Nolan DO Jun 11, 2017 11:50
[2017-06-11 11:52] LABS: CHOLESTEROL/ HDL RATIO 2.83 RATIO; HDL CHOLESTEROL 55.1 MG/DL (40.0-60.0); LDL CHOLESTEROL 89 MG/DL (0-99)
[2017-06-11 18:19] VITALS: BP 100/52; PULSE 73; RESP 16; TEMP 98; O2SAT 99
[2017-06-12 06:13] VITALS: BP 109/59; PULSE 51; RESP 15; TEMP 97.4; O2SAT 98
[2017-06-12] MEDS: REMOVE OLD PATCH T-DERMAL SCH (09:00)
[2017-06-12] MEDS: BENZTROPINE MESYLATE 1 MG TAB PO SCH ×2 (10:02→20:46)
[2017-06-12] MEDS: DIVALPROEX SODIUM E.R. 500 MG TAB PO SCH ×2 (10:02→20:46)
[2017-06-12 16:39] LABS: HEMOGLOBIN A1C 5.2 % (4.3-6.0)
[2017-06-12 17:16] VITALS: BP 99/70; PULSE 122; RESP 16; TEMP 98.2; O2SAT 98
--- NOTE | 2017-06-12 18:11 | HHI.PYPN ---
Subjective Chief Complaint: Suicidal ideation Remarks Patient seen for follow, chart reviewed. Discussion nursing staff reported the patient saw dietitian earlier today, denying suicide ideations, compliant with medications, seclusive to room. Patient was found in the hallway staring into the nurse's station appearing internally preoccupied. Patient noted with flat affect, states that he is feeling "good" continues report feeling depressed more so on day of the overdose. Patient noted with concrete thought process. Patient states that he had attempted to end his life because "I did not know how to stop my head from spinning". Patient reports having been feeling depressed 1-2 days before the overdose, denying any specific depressive symptoms was not able to elaborate on any other stressors contributing to his suicide attempt other than that stated above. Patient states he last spoke with his parents recently. Patient denies any perceptional services although appearing to be internally preoccupied. Patient denies any delusions or suicide ideations at this time. Review of Systems Except as stated in HPI: all other systems reviewed are Neg Mental Status Examination Appearance: Disheveled (Has not showered today) Consciousness: Alert Orientation: x4 Motor Activity: Other (No motor abnormalities noted) Speech: Other ([place]) Language: Adequate Fund of Knowledge: Adequate Attention and Concentration: Adequate Memory: Unremarkable Mood: Appropriate, Other ("Good") Affect: Flat Thought Process & Associations: Loose associations, Other ([place]) Thought Content: Appropriate Hallucination Type: None Delusion Type: None Suicidal Ideation: No Suicidal Plan: No Suicidal Intention: No (No reported urge to hurt self on an inpatient unit) Homicidal Ideation: No Homicidal Plan: No Homicidal Intention: No Insight: Fair Judgment: Impulsive Results Vitals/IOs Vital Signs Date Time Temp Pulse Resp B/P (MAP) Pulse Ox O2 Delivery O2 Flow Rate FiO2 06/12/17 17:16 98.2 122 16 99/70 (80) 98 06/10/17 06:24 Room Air Intake and Output 06/12/17 06/12/17 06/13/17 08:00 16:00 00:00 Intake Total 240 ml Balance 240 ml Assessment & Plan Problem List: (1) Schizophrenia, paranoid type ICD Codes: F20.0 - Paranoid schizophrenia Assessment & Plan Patient this time noted to be internally preoccupied, although denying any perceptual disturbances. Patient noted with flat affect and likely responding to internal stimuli. Patient denies any suicide ideations at this time, reports feeling somewhat depressed but less so compared to the of overdose. Patient not noted to have any significant tremors noted during interview. Patient continues with poor hygiene, seclusive and not attending any groups or activities. We will continue current treatment. Continue to encourage the patient to maintain personal hygiene and participate in groups and activities on the unit. We will continue to monitor mood and behavior. We will attempt to have patient's parents come for a visit to assess patient's baseline. Discharge planning in progress. Justification for Cont. Inpt. At risk for further decompensation if at lower level of care Request HC Surrog/Guard Advoc?: No Lance Hansen MD Jun 12, 2017 18:11
[2017-06-13 06:04] VITALS: BP 112/67; PULSE 66; RESP 16; TEMP 97.9; O2SAT 98
[2017-06-13] MEDS: BENZTROPINE MESYLATE 1 MG TAB PO SCH ×2 (08:17→21:23)
[2017-06-13] MEDS: REMOVE OLD PATCH T-DERMAL SCH (09:00)
--- NOTE | 2017-06-13 14:22 | HHI.PYPN ---
Subjective Chief Complaint: Suicidal ideation Remarks Patient seen for follow-up, chart reviewed. Discussion nursing staff reported the patient not taking Depakote dose this morning as he was waiting for lab to draw for lithium level, patient has not showered. Patient was found ambulating on the unit noted B, cooperative. Patient states that he has been awaiting this morning to have Depakote level drawn but had not been done. Patient also reports having spoke with his mother over the phone which she states she mentioned that he is doing better but did not visit yesterday. Patient agreed to shower today as he is noted to be disheveled. Patient denies any auditory hallucinations that he last time was in February of this year. Patient denies feeling depressed denying any suicide ideations. Patient states that he continues to feel his head is spinning, which was a reason for his recent suicide attempt but states that he is able to manage without having recurrence of suicidal ideation. Review of Systems Except as stated in HPI: all other systems reviewed are Neg Mental Status Examination Appearance: Disheveled (Has not showered today) Consciousness: Alert Orientation: x4 Motor Activity: Other (No motor abnormalities noted) Speech: Other ([place]) Language: Adequate Fund of Knowledge: Adequate Attention and Concentration: Adequate Memory: Unremarkable Mood: Appropriate, Other ("Good") Affect: Flat Thought Process & Associations: Loose associations, Other ([place]) Thought Content: Appropriate Hallucination Type: None Delusion Type: None Suicidal Ideation: No Suicidal Plan: No Suicidal Intention: No Homicidal Ideation: No Homicidal Plan: No Homicidal Intention: No Insight: Fair Judgment: Impulsive Results Vitals/IOs Vital Signs Date Time Temp Pulse Resp B/P (MAP) Pulse Ox O2 Delivery O2 Flow Rate FiO2 06/13/17 06:04 97.9 66 16 112/67 (82) 98 06/10/17 06:24 Room Air Assessment & Plan Problem List: (1) Schizophrenia, paranoid type ICD Codes: F20.0 - Paranoid schizophrenia Assessment & Plan Estimated LOS: days Justification for Cont. Inpt. Patient at this time continues to deny any perceptual disturbances, to comply with treatment, but no behavioral disturbances while on the unit. Patient's hygiene continues report but had agreed to shower today. We will reorder Depakote level for tomorrow morning a.m. Patient's mother to visit this evening to be able to assess patient's baseline. Continue to monitor mood and behavior. Continue current treatment. Discharge planning in progress. Discharge Planning Patient return back to his residence was psychiatrically stable. Request HC Surrog/Guard Advoc?: No Lance Hansen MD Jun 13, 2017 14:22
[2017-06-13 15:18] VITALS: BP 103/57; PULSE 116; RESP 18; TEMP 98.6; O2SAT 96
[2017-06-13] MEDS: DIVALPROEX SODIUM E.R. 500 MG TAB PO SCH (21:24)
[2017-06-14 05:49] VITALS: BP 84/57; PULSE 56; RESP 14; TEMP 97.7; O2SAT 96
[2017-06-14] MEDS: REMOVE OLD PATCH T-DERMAL SCH (09:00)
[2017-06-14] MEDS: DIVALPROEX SODIUM E.R. 500 MG TAB PO SCH (09:11)
[2017-06-14] MEDS: BENZTROPINE MESYLATE 1 MG TAB PO SCH (09:12)
--- NOTE | 2017-06-14 09:30 | PD.TTN ---
Patient Problems 1. Discharge planning 2. Medication compliance 3. Knowledge deficit 4. Lack of coping skills Progress Toward Goals Provider Present: Dr. Belle Hansen Provider Input: 06/14/17 - Dr. Hansen reported that the patient showered yesterday at Dr. Hansen' request. Patient's mother was planning to visit last evening. Psychiatric Counselors Present: SOCORRO Valdes Psych Therapist Input: 06/14/17 - Counselor will call patient's mother to see how last night's visit went. Possible discharge home today. Group Spec/RT/OT/[place] Present: KENDRA Morrison Group Spec/RT/OT/[place] Input: 06/14/17 - Patient does not participate in groups. Discharge Plan [facility] 06/14/17 - Patient will be discharged to his mother's house when deemed appropriate by Dr. Hansen. Patient will follow with [facility]. Documentation Scribe: SOCORRO Valdes Date Resolved: Jun 14, 2017 Ca Connell Jun 14, 2017 09:30
[2017-06-14] MEDS ORDERED: Benztropine PO (14:43)
[2017-06-14] MEDS ORDERED: DEPA500T3 PO (14:43)
[2017-06-14] MEDS ORDERED: OLAN15TA PO (14:43)
[2017-06-14] MEDS ORDERED: PALI234P IM (14:43)
[2017-06-14] MEDS ORDERED: PALIPERIDONE PALMITATE 234 MG/1.5 ML SYRINGE IM ONE (15:00)
--- NOTE | 2017-06-14 16:39 | HHI.DS ---
Psychiatry Discharge Summary Inpatient Psychiatric care?: Yes Advance Directive: No Reason Not Provided: Does not have Mental Health AdvanceDirective: No Health Care Proxy: No Admission Admission Date Jun 10, 2017 at 09:15 Admission Diagnosis: (1) Schizophrenia, paranoid type ICD Code: F20.0 - Paranoid schizophrenia Brief History Mr. Aguirre is a 27-year-old male with psychiatric history of schizophrenia who presents voluntarily for worsening depression and suicidal ideation. Reviewing the electronic medical record, I note the patient was admitted under my care in February of this year. Patient seen and examined. Chart reviewed. Case discussed with nursing staff. On my examination today, the patient reports onset of suicidal ideation 1 day. He has no plan. No reported urge to hurt himself on the inpatient unit. He exhibits palilalia as noted previously. He denies feeling more depressed to me and likewise denies anhedonia. He says that he continues to enjoy playing computer games. He denies any audiovisual hallucinations. I can elicit no paranoia, no thought insertion or withdrawal, no ideas of reference, no grandiosity, no other delusional material. He denies any hopelessness or worthlessness. His sleep and appetite are fair. I can elicit no hypomanic or manic symptoms. The patient does describe some increased anger of late. He denies any homicidal ideation. He denies that his anger is directed against any specific victim. Remainder of the psychiatric ROS is negative. No acute physical complaints. Past psychiatric history: Patient has a history of schizophrenia. He follows at [facility]. He denies any recent psychiatric admissions. Denies any recent suicide attempts or violent behavior. He reports that he is medication compliant. He reports that he got his Invega Sustenna injection a week or 2 ago. Family history: The patient denies family history of mental illness. Chemical dependency history: The patient denies any abuse of drugs or alcohol. Social history: The patient reports that he stays with his mother. He denies any access to guns or firearms. He has 1/10 grade education. Denies any legal history. He is single with no children. Tobacco Use In Past 30 Days: No Tobacco Past 30 Days Alcohol Use: Never Results Blood Pressure 84 / 57 Vital Signs Date Time Temp Pulse Resp B/P (MAP) Pulse Ox O2 Delivery O2 Flow Rate FiO2 06/14/17 05:49 97.7 56 14 84/57 (66) 96 Laboratory Tests Test 06/14/17 08:20 Laboratory Results Test 06/11/17 09:50 06/14/17 08:20 Cholesterol Level 156 MG/DL (120-200) HDL Cholesterol 55.1 MG/DL (40.0-60.0) Hemoglobin A1c 5.2 % (4.3-6.0) LDL Cholesterol 89 MG/DL (0-99) Triglycerides Level 61 MG/DL (42-150) Valproic Acid (Depakene) Level 80 MCG/ML (50-100) Medications Approp Antipsych med options 1 - Minimum of three failed multiple trials of monotherapy. 2 - Documented plan to taper to monotherapy due to previous use of multiple meds OR cross-taper in progress at D/[facility]. 3 - Documentation of augmentation of Clozapine. 4 - Justification other than those listed in allowable values 1-3, document here : Discharge Pt Condition on Discharge: Stable Discharge Disposition: Discharge Home Discharge Instructions Diet Instructions: As Tolerated, No Restrictions Activities you can perform: Regular-No Restrictions Scheduled Appointment: Daniel Gutierrez Appointment Date: Jun 15, 2017 Appointment Time: 8 - 3 Mental Status Examination Appearance: Disheveled (Has not showered today) Consciousness: Alert Orientation: x4 Motor Activity: Other (No motor abnormalities noted) Speech: Other ([place]) Language: Adequate Fund of Knowledge: Adequate Attention and Concentration: Adequate Memory: Unremarkable Mood: Appropriate, Other ("Good") Affect: Flat Thought Process & Associations: Loose associations, Other ([place]) Thought Content: Appropriate Hallucination Type: None Delusion Type: None Suicidal Ideation: No Suicidal Plan: No Suicidal Intention: No Homicidal Ideation: No Homicidal Plan: No Homicidal Intention: No Insight: Fair Judgment: Impulsive Discharge/Advance Care Plan Health Problems: (1) Schizophrenia, paranoid type Goals to promote your health * To prevent worsening of your condition and complications * To maintain your health at the optimal level Directions to meet your goals Take your medications as prescribed Follow your dietary instruction Follow activity as directed Keep your appointments as scheduled Take your immunizations and boosters as scheduled If your symptoms worsen call your PCP, if no PCP go to Urgent Care Center or Emergency Room For 12/09 questions related to your inpatient stay or results of tests pending at discharge, please contact Dr. Lance Hansen at Smoking is Dangerous to Your Health. Avoid second hand smoking Lance Hansen MD Jun 14, 2017 16:39
== END 2017-06-14 17:25 | disposition home or self-care (01) | DRG 885 ==
LOC: NEPJ 20:41 → NEDA 06-10 09:15 → H260 06-10 12:30
PROVIDERS: ADMIT Student in an Organized Health Care Education/Training Program; ATTEND Student in an Organized Health Care Education/Training Program
DX: F20.0 Paranoid schizophrenia (principal); R45.851 Suicidal ideations; R48.8 Other symbolic dysfunctions; F41.9 Anxiety disorder, unspecified
CPT/HCPCS: 80053; 80061; 80164; 80307; 83036; 84443; 85025; 99285; J2426